=== PATIENT | female | born 1945 | race Caucasian/White ===

== ENCOUNTER 2017-01-12 11:56 | Inpatient (IN) | payer MEDICARE, OTHER ==
[2017-01-12] MEDS ORDERED: Haloperidol Lactate 5 MG/ML VIAL ONE (12:46)
[2017-01-12] MEDS ORDERED: Lorazepam 2 MG/ML VIAL ONE ×2 (13:57→15:16)
--- NOTE | 2017-01-12 15:46 | CT ---
NONCONTRAST CT ABDOMEN AND PELVIS: Date: 01-12-17 History: Nausea, vomiting, and diarrhea. Comparison: None available. FINDINGS: Partial visualization of cardiac pacemaking leads. There is bibasilar atelectasis. Mild vascular calcifications are seen in the abdominal aorta and involving the iliac arteries. There is artifact through the abdomen related to patient's close proximity to the gantry. This does l imit adequate evaluation. Post cholecystectomy changes are seen. The liver, spleen, pancreas, bilateral adrenal glands, and kidneys demonstrate a grossly normal nonen hanced CT appearance. No renal or ureteral calculi are seen bilaterally. The urinary bladder is distended and normal in appearance. Uterus appears surgically absent. The appendix is visualized and normal in caliber. Degenerative changes are seen in the spine. There is left convex curvature of the lumbar spine. IMPRESSION: 1. Distention of the urinary bladder. There is no hydronephrosis or hydroureter, and no renal or uret eral calculi are seen. 2. No evidence of appendicitis. 3. Cholecystectomy. 4. Hysterectomy. 5. Vascular calcifications. POS: [facility]
[2017-01-12] MEDS ORDERED: Lidocaine 1% w/Epinephrine 1:200K 30 ML VIAL ONE (15:51)
[2017-01-12] MEDS ORDERED: Lidocaine 1% PF 5 ML VIAL ONE (15:58)
[2017-01-12 16:41] LABS: Hematocrit 34.8 % (36.0-47.0); Mean Platelet Volume 8.7 fL (7.4-10.4); Red Blood Cell (RBC) Count 3.62 mill/uL (4.20-5.40)
[2017-01-12 16:42] LABS: Oxyhemoglobin 93.4 % (94.0-97.0); Sodium 138 mmol/L (135-148)
[2017-01-12 16:43] LABS: Mode RA; Vent NO
[2017-01-12 16:49] LABS: PTT 28.7 SEC (22.9-36.1); Prothrombin Time 14.5 SEC (12.0-14.7)
[2017-01-12 16:55] LABS: Lactic Acid - Sepsis 1.1 mmol/L (0.5-2.2)
[2017-01-12 17:00] LABS: Band 5 % (5-11); Neutrophil 87 % (42-75)
[2017-01-12 17:02] LABS: ALT (SGPT) 30 U/L (8-55); AST (SGOT) 37 U/L (5-34); Alkaline Phosphatase 259 U/L (40-150); Anion Gap 13 mmol/L (10-20); BUN (Urea Nitrogen) 56 mg/dL (9.8-20.1); Bilirubin, Total 0.5 mg/dL (0.2-1.2); CK (CPK) 716 U/L (29-168); Calc. Creatinine Clearance 0 mL/min (70-130); Calcium 9.6 mg/dL (7.8-10.44); Carbon Dioxide 21 mmol/L (23-31); Chloride 108 mmol/L (98-107); Estimated GFR-MDRD 19; Globulin 2.7 g/dL (2.4-3.5); Lipase 25 U/L (8-78); Magnesium 2.1 mg/dL (1.6-2.6); Protein, Total 6.6 g/dL (6.0-8.3)
[2017-01-12 17:03] LABS: Troponin I 0.018 ng/mL (< 0.028)
--- NOTE | 2017-01-12 17:20 | RAD ---
CHEST ONE VIEW: History: Altered mental status. Dyspnea. FINDINGS: No comparison. Cardiac silhouette is magnified by projection. Pulmonary vasculature is upper limits o f normal. Mediastinum is midline with a dual-lead left subclavian cardiac electronic device. No lobar consolidation or pneumothorax evident. rotary driller leads overlie the chest. IMPRESSION: No active cardiopulmonary abnormalities are demonstrated. POS: [facility]
[2017-01-12] MEDS ORDERED: hydrALAZINE 20 MG/ML VIAL SLOW IVP PRN (17:38)
[2017-01-12] MEDS ORDERED: Haloperidol Lactate 5 MG/ML VIAL IM PRN (17:38)
[2017-01-12] MEDS ORDERED: Bisacodyl 10 MG SUPP PR PRN (17:38)
[2017-01-12] MEDS ORDERED: Acetaminophen 325 MG TAB PO PRN (17:38)
[2017-01-12] MEDS ORDERED: Nitroglycerin 0.4 MG TAB (25 Tab Bottle) PO PRN (17:38)
[2017-01-12] MEDS ORDERED: Senokot 8.6 MG TAB PO PRN (17:38)
[2017-01-12] MEDS ORDERED: Ondansetron HCl/PF 4 MG/2 ML Vial IVP PRN (17:38)
[2017-01-12] MEDS ORDERED: Meropenem 1 GM in Sodium Chloride 0.9% 100 ML IVPB SCH (17:38)
[2017-01-12] MEDS ORDERED: Dextrose 5% in Water 1,000 ML IV PRN (17:38)
[2017-01-12] MEDS ORDERED: Insulin Regular 300 UNITS/3 ML VIAL SC PRN ×2 (17:38)
[2017-01-12] MEDS ORDERED: Ondansetron ODT 4 MG TAB PO PRN (17:38)
[2017-01-12] MEDS ORDERED: Dextrose 50% Abboject 50 ML SYRINGE SLOW IVP PRN (17:38)
--- NOTE | 2017-01-12 17:59 | HP ---
DATE OF ADMISSION: 01/12/2017 PRIMARY CARE PHYSICIAN: Dr. Matthew Alvarado. CHIEF COMPLAINT: Altered mentation. CODE STATUS: FULL CODE. SURROGATE DECISION-MAKER: To be verified with the family. CHIEF COMPLAINT: Altered mentation. The patient is a transfer from [place]. HISTORY OF PRESENT ILLNESS: The patient is a 71-year-old female with hypertension, diabetes mellitus type 2, and bipolar disorder what was brought in to [place] [facility] with altered mentation. The patient was transferred to this facility for hospital admission. At this time, there is no fam paulino at the bedside. History obtained from the review of [facility] records. There is no family in [facility] waiting area as well. According to records from [place], the patient has several days of altered mentation along with vom iting and diarrhea. She has been increasingly agitated. Her psych medications were recently changed . Per ER record, Paxil was recently discontinued. There was no fever, chills, fall or injury report ed. In the emergency room at [facility], her CBC showed WBC 23.4 with hemoglobin 12.5, platelet count 238 with 86% neutrophils. Urinalysis was negative for wbc, bacteria. Creatinine was 3.0 with BUN 64.6. Her chest x-ray showed cardiomegaly. CT scan of the brain showed atrophy with chronic microvascular changes. The case was discussed by the ER physician at [facility] with her primary care physician, Emily Alvarado, who recommended transfer to this facility for possible MRI. Please note, the patient has a pacemaker for sick sinus syndrome. Her initial vital signs at the emergency room showed temperature 37, pulse rate of 65 with blood pressure 109/76 with O2 saturation of 93% on room air. Repeat labs are pending at this time. It is unclear whether blood cultures were drawn over there. She received ceftriaxone at [place]. PAST MEDICAL HISTORY: Per ER record; 1. Diabetes mellitus, type 2. 2. Hyperlipidemia. 3. Hypertension. 4. Hypothyroidism. 5. Anxiety, depression, bipolar disorder. 6. Sick sinus syndrome, status post pacemaker. PAST SURGICAL HISTORY: 1. Cholecystectomy. 2. Hysterectomy. 3. Knee replacement. 4. Colonoscopy. ALLERGIES: The patient is allergic ABILIFY, CODEINE, SEROQUEL, and ZOLOFT. CURRENT HOME MEDICATIONS: Unavailable at this time. To be verified with the family. SOCIAL HISTORY: Per ER record, the patient drinks alcohol occasionally. No smoking or drug use. Nicki ortiz currently lives at home with her family. She has a history of drinking 2-3 beers on a daily basis in the past. FAMILY HISTORY: Positive for coronary artery disease and hypertension in several family members. REVIEW OF SYSTEMS: Cannot be obtained from the patient due to current cognitive status. PHYSICAL EXAMINATION: VITAL SIGNS: As discussed above. Her last temperature was 98.6 with blood pressure 102/94. GENERAL: A 71-year-old female who was agitated. She is unresponsive to verbal commands. She is matthew ke and screaming. No family at the bedside. HEENT: Head atraumatic, normocephalic. Sclerae are anicteric. Dry mucous membranes. No oral lesio n. Pupils were 2-3 mm bilaterally with sluggish response to light. Doll's eye movements were negati ve. NECK: Supple. There is no neck rigidity, no JVD. LUNGS: Showed scattered rales at bases. No rhonchi or wheezing. Lungs are symmetrical. HEART: S1, S2 present, regular, 2/6 systolic murmur over the mitral area. No heaves or pulsation. No gallops. ABDOMEN: Soft. Bowel sounds present. No guarding or rigidity noted. EXTREMITIES: Trace edema in bilateral lower extremities. No calf tenderness appreciated. NEUROLOGIC AND PSYCHIATRIC: Could not be assessed due to current cognitive status. There was no mus luther rigidity. The tone was probably normal. Again, it is difficult to assess due to patient being a gitated. SKIN: Skin is dry. LYMPH NODES: No palpable lymph nodes in the neck. PERIPHERAL VASCULAR: Radial pulses palpable bilaterally. MUSCULOSKELETAL: No joint swelling or tenderness. LABORATORY FINDINGS: As discussed above. Telemetry monitoring by my review showed sinus rhythm. CT scan of the abdomen and pelvis noncontrast by my review showed distention of the urinary bladder wit hout any hydronephrosis or hydroureter. IMPRESSION: 1. Altered mentation/toxic metabolic encephalopathy of unclear etiology. 2. Leukocytosis, suspected sepsis of unclear etiology. 3. Diabetes mellitus, type 2. 4. Hypertension. 5. Sick sinus syndrome, status post pacemaker. 6. Anxiety, depression, bipolar disorder with recent medication changes. 7. Hypothyroidism. 8. Acute kidney injury. Her baseline creatinine is unavailable. In [facility], creatinine was 1.0 in 2000. No other labs available. 9. Nausea, vomiting, diarrhea, suspected infectious. Rule out Clostridium difficile. 10. Dehydration. 11. History of alcohol abuse. 12. Degenerative joint disease. PLAN: 1. The patient will be monitored in the intermediate care unit. Stat labs including blood gases, CK , lactic acid and blood cultures will be obtained. She received Haldol in the emergency room for jared tation. We will empirically start antibiotics. LP was attempted; however, was not performed due to patient being agitated. Critical Care will be consulted. Exact etiology for altered mentation is un clear. We will discuss with the family. Medication changes is also a possibility. 2. DVT prophylaxis with subcutaneous heparin. IV hydration. 3. We will discuss the plan of care with the family when they arrive. 4. The patient will require 3-4 days for stabilization.
[2017-01-12] MEDS: Meropenem 1 GM in Sodium Chloride 0.9% 100 ML IVPB SCH ×2 (18:01→19:10)
[2017-01-12 19:04] LABS: Troponin I 0.022 ng/mL (< 0.028)
[2017-01-12] MEDS: Dextrose 5 %-0.45 % NaCl 1,000 ML IV SCH (19:09)
[2017-01-12] MEDS: Docusate 100 MG CAP PO SCH (20:33)
[2017-01-12] MEDS: Heparin 5,000 UNITS/ML VIAL SC SCH (20:35)
[2017-01-12] MEDS ORDERED: FLU VACC TS2017-18 (>65YR) 0.5 ML SYRINGE IM ONE (21:00)
[2017-01-12 22:33] LABS: Troponin I 0.029 ng/mL (< 0.028)
[2017-01-12] MEDS ORDERED: Haloperidol Lactate 5 MG/ML VIAL IM SCH (23:45)
[2017-01-13] MEDS ORDERED: Morphine PF 1 MG/ML SYR IVP PRN (02:46)
--- NOTE | 2017-01-13 02:48 | PDOC.EVN ---
Event Note - Event Note Event Note: Pt seen for episodes of agitation. Currently asleep, S1, S2, regular, Lungs clear. Discussed with pt's daughter and RN. Pt appears to have been in pain when she was moaning and agitated. Will try morphine PRN. Discussed with daughter re; risk of worsening confusion from morphine as well as possible allergy (pt is allergic to codeine). Pt's daughter wishes to trial morphine. Cannot try NSAIDs due to renal failure.
[2017-01-13 05:12] LABS: #Eosinphils 0.1 thou/uL (0.0-0.7); #Lymphocytes 1.4 thou/uL (1.20-3.40); #Neutrophils 17.5 thou/uL (1.40-6.50); %Basophils 0.2 % (0.0-1.0); %Eosinophils 0.4 % (0.0-10.0); %Lymphocytes 6.5 % (21.0-51.0); %Monocytes 9.3 % (0.0-10.0); Hematocrit 33.6 % (36.0-47.0); White Blood Cell (WBC) Count 20.9 thou/uL (4.8-10.8)
[2017-01-13] MEDS: Dextrose 5 %-0.45 % NaCl 1,000 ML IV SCH (05:57)
[2017-01-13 06:04] LABS: ALT (SGPT) 30 U/L (8-55); AST (SGOT) 34 U/L (5-34); Alkaline Phosphatase 260 U/L (40-150); Anion Gap 14 mmol/L (10-20); BUN (Urea Nitrogen) 50 mg/dL (9.8-20.1); Bilirubin, Total 0.5 mg/dL (0.2-1.2); CK (CPK) 831 U/L (29-168); Calc. Creatinine Clearance 35 mL/min (70-130); Calcium 9.2 mg/dL (7.8-10.44); Carbon Dioxide 19 mmol/L (23-31); Chloride 110 mmol/L (98-107); Cholesterol 70 mg/dl (< 200 Desired); Estimated GFR-MDRD 21; Globulin 2.6 g/dL (2.4-3.5); LDL Cholesterol, Calculated 18 mg/dL; Protein, Total 6.4 g/dL (6.0-8.3)
[2017-01-13] MEDS: Meropenem 500 MG, Admixture Fee 1 EACH in Sterile Water 10 ML SLOW IVP SCH ×2 (09:13→20:48)
[2017-01-13] MEDS: Famotidine/PF 20 mg/2ml Vial SLOW IVP SCH (09:13)
[2017-01-13] MEDS: Aspirin 300 MG Suppository PR SCH (09:13)
[2017-01-13] MEDS: Heparin 5,000 UNITS/ML VIAL SC SCH ×3 (09:13→20:51)
[2017-01-13] MEDS ORDERED: Cyanocobalamin 1000 MCG/ML VIAL IM SCH (09:30)
[2017-01-13] MEDS: Docusate 100 MG CAP PO SCH ×2 (10:10→20:51)
--- NOTE | 2017-01-13 12:16 | CON ---
DATE OF CONSULTATION: 01/13/2017 REASON FOR CONSULTATION: Critical care management. HISTORY OF PRESENT ILLNESS: This is a 71-year-old female who presented to the hospital yesterday wit h altered mental status. She could not give a history. Apparently, she had presented to the [facility] several days of altered mental status along with vomiting and diarrhea. She had become a gitated. PAST MEDICAL HISTORY: 1. Diabetes mellitus type 2. 2. Bipolar disorder. 3. Hypothyroidism. 4. Hypertension. 5. Hyperlipidemia. 6. Sick sinus syndrome. PAST SURGICAL HISTORY: 1. Pacemaker placement. 2. Cholecystectomy. 3. Hysterectomy. 4. Knee surgery. 5. Colonoscopy. ALLERGIES: ABILIFY, CODEINE, SEROQUEL, ZOLOFT. MEDICATIONS PRIOR TO ADMISSION: She had been taking lithium, lorazepam, Plavix, Synthroid, Avapro, V alium, hydrochlorothiazide, vitamin D2, Glucophage, lithium carbonate, furosemide, Coreg, Farxiga, Li pitor. SOCIAL HISTORY: The patient drinks alcohol occasionally. Does not smoke. FAMILY MEDICAL HISTORY: Remarkable for coronary artery disease. REVIEW OF SYSTEMS: Cannot be obtained secondary to patient's altered mental status. PHYSICAL EXAMINATION: VITAL SIGNS: Temperature 98.5, pulse 60, respirations 16, O2 sat 97%, blood pressure 174/49. HEENT: Unremarkable. NECK: No JVD. LUNGS: Clear to auscultation. CARDIAC: S1, S2 regular. ABDOMEN: Soft. EXTREMITIES: No edema. NEUROLOGIC: She moans. She does not follow commands. LABORATORY DATA: White blood cell count 20.9, hemoglobin 10, hematocrit 33.6, platelet count 201. P H 7.31, pCO2 37, pO2 77. Sodium 139, potassium 3.8, chloride 110, CO2 19, BUN 50, creatinine 2.3, gl ucose 144. CPK 831, alkaline phosphatase 260. Cortisol 18.9. Tox screen showed a lithium level of 2.9. ASSESSMENT: 1. 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 2. Renal insufficiency, likely secondary to her issues with lithium. 3. History of bradycardia requiring pacemaker placement. RECOMMENDATIONS: 1. Continue hydration as you are doing. 2. Consider Nephrology consultation and possible hemodialysis.
[2017-01-13 16:16] LABS: Vancomycin, Random 8.9 ug/mL (See Comment)
[2017-01-13] MEDS: Sodium Chloride 0.9% 1,000 ML IV SCH ×2 (17:50→20:50)
--- NOTE | 2017-01-13 17:53 | CON ---
DATE OF CONSULTATION: 01/13/2017 REASON FOR CONSULTATION: Altered mental status. HISTORY OF PRESENT ILLNESS: A 71-year-old patient first admission to this hospital since 2000. Pattie cárdenas has a longstanding history of bipolar disorder, previously managed with Zyprexa and currently chaz arently has been started on lithium therapy. She also takes Farxiga, metformin, Lasix, atorvastatin, and Plavix. Patient developed altered mental status since 12/28/2016. This has been discussed with her primary care physician. Initially the PCP felt that Paxil might be the cause and he started the patient on Trintellix, which is another SSRI related medication. Subsequently, she developed vomiti ng and diarrhea and was brought to the emergency room on 01/06/2017 and on 01/09/2017, family called PCP and he them to stop Trintellix. She continued to feel unwell with generalized fatigue and unable to ambulate. Continued with vomiting and diarrhea, and then she was admitted to the emergency room. Initial findings included blood pressure 102/94, pulse 76, respirations 18, temperature 98.6, and O 2 sat 100% on room air. The patient was moving extremities, but was obtunded and did not respond to questions. Did not follow commands. Initial impression was altered mental status with metabolic enc ephalopathy of unclear etiology, leukocytosis, and acute kidney injury. Now, lithium level has retur nikita and was in the toxic range of 2.9. Patient has been prepared for hemodialysis in an emergency [facility]. Currently, Ms. Pulido is obtunded. She is moaning and groaning, but does not establish int eraction with the examiner, does not follow commands and does not open her eyes spontaneously. No re ported chest pain or fever in the home setting. No genitourinary symptoms. PAST MEDICAL HISTORY: Type 2 diabetes, bipolar disorder, hyperlipidemia, hypertension, hypothyroidis m, sick sinus syndrome with pacemaker. PAST SURGICAL HISTORY: Cholecystectomy, hysterectomy, knee replacement, colonoscopy. ALLERGIES: ABILIFY, CODEINE, Seroquel, and ZOLOFT. MEDICATIONS: As above. SOCIAL HISTORY: Never a smoker. Used to drink beer on a daily basis. FAMILY HISTORY: Coronary artery disease. PHYSICAL EXAMINATION: VITAL SIGNS: T-max 99.3, now 98.6, blood pressure 160/50, pulse 80, respirations 16, O2 sat 94%-98%. SKIN: With peripheral IV access and she has an indwelling Eubanks catheter. Urinary output is 1900 an d input 1300. SKIN: Exam with no other lesions, no lymphadenopathy. HEENT: Ocular movements are conjugate, but she does not follow commands. Sclerae white. Pupils are 2 mm and reactive. Oral cavity is somewhat dry. Still quite a few teeth in place with quite a bit of decay and gum disease. NECK: Supple. No jugular venous distention. LUNGS: With symmetric air entry. HEART: S1, S2, regular rate. No S3 or S4. There is soft aortic murmur. Pacer pocket site without inflammatory changes. ABDOMEN: Soft. Not distended or tender. No ascites. No bladder distention. EXTREMITIES: No joint inflammatory activity. Pulses are 1+ in dorsalis pedis. NEUROLOGIC: Patient moves all extremities, but does not follow commands. She has some element of ps ychomotor agitation. LABORATORY DATA AND IMAGING: Sodium 139, creatinine 2.27, which is down from admission when it was 2 .49. No baseline creatinine available in the record except for the one from 2000 when it was 1.0. A ST 34, ALT 30, alkaline phosphatase 260, CK 831. LACTIC acid was 1.1. Anion gap 14, albumin 3.8, li thium was 2.9. Two different samples submitted this morning. Abdomen and pelvis CT with distention of the urinary bladder. No evidence of inflammatory changes noted, some vascular calcifications. Ch est x-ray with no active pulmonary abnormalities. Echocardiogram LVEF of 55%, mild to moderate kodi l regurg, and a pacer visualized. ASSESSMENT: 1. Bipolar disorder. 2. Diabetes type 2. 3. Renal insufficiency associated with volume depletion. 4. [place] toxicity, likely chronic. 5. Neutrophilia. 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 This superimposed on renal insufficiency which is probably what precipitated the lithium toxicity. The patient will be dialyzed. The neutrophilia is probably secondary to the lithium toxicity as well. There is no evidence of an acute inflammatory process not iceable at this point in time.
--- NOTE | 2017-01-13 22:35 | OP ---
DATE OF OPERATION: 01/13/2017 PREOPERATIVE DIAGNOSES: [place] toxicity, morbid obesity, agitation. POSTOPERATIVE DIAGNOSES: [place] toxicity, morbid obesity, agitation. PROCEDURE: Right femoral vein Trialysis catheter. SURGEON: Natalio Lay M.D. ANESTHESIA: 1% Xylocaine. DESCRIPTION OF PROCEDURE: At the patient's bedside in the intermediate care area with three nurses kitty mejia assisted me to restrain the patient due to her lithium toxicity. Her right groin was prepar ed with ChloraPrep, draped in routine fashion. A 1% Xylocaine infiltrated in skin and subcutaneous t issue, and trocar catheter with great difficulty accessed the femoral vein. This was difficult due t o the patient's lack of cooperation of movement. After multiple attempts, I was able to thread a J-w luis fernando, removed the trocar catheter, used the Seldinger technique to place placing a smaller and medium sized dilator over the J-wire into the femoral vein and placed the distal port of Trialysis catheter over the J-wire into the femoral vein and securing the catheter with 3-0 nylon suture, removing the J -wire, securing the catheter with Op-Site and secured it to the skin with 3-0 silk. Each port aspira josy blood and flushed with saline solution and connected to the dialysis catheter machine. Patient t olerated the procedure well.
--- NOTE | 2017-01-13 23:34 | PRG ---
DATE OF SERVICE: 01/13/2017 SUBJECTIVE: The patient is seen and examined at the bedside. She received a lot of medications to c scooter her down. She is still agitated and screaming. She does not let me even examine her in a normal way. OBJECTIVE: VITAL SIGNS: Blood pressure is 174/49, pulse is 60, temperature is 98.5, respirations 18, O2 saturat ion is 98. LUNGS: Difficult to assess because she is in constant movement. HEART: S1, S2 normal. ABDOMEN: Obese. NEUROLOGIC: As mentioned above. Difficult to assess. She is not cooperating. She is able to move her all 4 extremities, but that is all we can assess at this point. LABORATORY DATA: White count was up to 20.9, hemoglobin 10.8, hematocrit 33.6, platelet count is 201 ,000. Sodium of 139, potassium 3.3, chloride 110, CO2 of 19, BUN is 50, creatinine 2.27, glycemic is ranging from 110-137. Alkaline phosphatase 260, 831. The rest of chemistry within normal moya its. Cortisol 18.9. [place] level was checked, 2.9-5, it is a critical value. IMPRESSION: 1. [place] toxicity. 2. Leukocytosis, unclear etiology, most likely related to #1, but we are not ready to rule out infec tion. 3. Diabetes mellitus, type 2. 4. Hypertension. 5. Sick sinus syndrome, status post pacemaker. 6. Hypothyroidism. 7. Acute kidney injury. PLAN: Stop D5 water. Start normal saline 200 bolus then 150 per hour. Obtain a consultation with n ephrologist and do the dialysis. Start her on Vitamin B12 since her level is low at 250. Continue A ccu-Cheks. Continue broad coverage antibiotics.
[2017-01-14] MEDS: Sodium Chloride 0.9% 1,000 ML IV SCH ×3 (03:49→11:42)
[2017-01-14 06:03] LABS: ALT (SGPT) 35 U/L (8-55); AST (SGOT) 39 U/L (5-34); Alkaline Phosphatase 269 U/L (40-150); Anion Gap 13 mmol/L (10-20); BUN (Urea Nitrogen) 16 mg/dL (9.8-20.1); Bilirubin, Total 0.8 mg/dL (0.2-1.2); Calc. Creatinine Clearance 56 mL/min (70-130); Calcium 8.5 mg/dL (7.8-10.44); Carbon Dioxide 26 mmol/L (23-31); Chloride 107 mmol/L (98-107); Estimated GFR-MDRD 36; Globulin 2.6 g/dL (2.4-3.5); Protein, Total 6.3 g/dL (6.0-8.3)
[2017-01-14 06:08] LABS: Band 11 % (5-11); Hematocrit 30.7 % (36.0-47.0); Mean Platelet Volume 8.8 fL (7.4-10.4); Neutrophil 83 % (42-75); Red Blood Cell (RBC) Count 3.19 mill/uL (4.20-5.40); White Blood Cell (WBC) Count 29.2 thou/uL (4.8-10.8)
[2017-01-14 08:21] LABS: Oxyhemoglobin 95.3 % (94.0-97.0); Sodium 144 mmol/L (135-148)
[2017-01-14 08:23] LABS: Mode 02 3L/M NC; Modified Allen's Test NOT DONE; Vent NO
[2017-01-14 08:54] LABS: Bilirubin Moderate (Negative); Blood, Urine Large (Negative); Glucose, Urine (Dipstick) 500 mg/dL (Negative); Ketone, Urine 15 mg/dL (Negative); Nitrite Negative (Negative); Protein, Urine (Dipstick) 100 mg/dL (Neg-Trace)
[2017-01-14 08:56] LABS: RBC/HPF GREATER THAN 50-TNTC HPF (0-3); WBC/HPF 21-50 HPF (0-3)
[2017-01-14 09:07] LABS: Bacteria/HPF Rare-Few HPF (None Seen); Hyaline Casts/LPF 0-3 HYALINE CAST LPF (0-3 Hyaline)
[2017-01-14 09:08] LABS: Renal Epithelial 0-3 HPF (0-3); Transitional Epithelial 0-3 HPF (0-3)
[2017-01-14] MEDS: Docusate 100 MG CAP PO SCH ×2 (09:09→19:48)
[2017-01-14] MEDS: Heparin 5,000 UNITS/ML VIAL SC SCH ×3 (09:09→21:00)
[2017-01-14] MEDS: Aspirin 300 MG Suppository PR SCH (09:10)
[2017-01-14] MEDS: Meropenem 500 MG, Admixture Fee 1 EACH in Sterile Water 10 ML SLOW IVP SCH ×2 (09:10→21:01)
[2017-01-14] MEDS: Famotidine/PF 20 mg/2ml Vial SLOW IVP SCH (09:10)
--- NOTE | 2017-01-14 09:28 | RAD ---
PORTABLE UPRIGHT FRONTAL CHEST RADIOGRAPH: DATE: 01/14/17. COMPARISON: 01/12/17. HISTORY: Tachypnea. FINDINGS: Shallow inspiration limits detailed assessment. Mild linear density in the perihilar regions and bennett g bases may signify volume loss. Stable transvenous pacing device. No pneumothorax seen. IMPRESSION: Limited study secondary to shallow inspiration. No significant interval change. POS: [facility]
--- NOTE | 2017-01-14 10:48 | PRG ---
DATE OF SERVICE: 01/14/2017 SUBJECTIVE: The patient was seen and examined at the bedside. She is in ICU B8. She was dialyzed y esterday after she had catheter placed by general surgeon in her groin. She seems to be doing better , but she still is not able to communicate with us. She does not follow commands. OBJECTIVE: VITAL SIGNS: Blood pressure is 159/65: Temperature is 97.8, pulse is 65, respiratory rate is 20, O2 saturation is 97% on 2 L by nasal cannula. GENERAL: Today I am able to listen to her chest and check her abdomen. She is not fighting me like yesterday. HEENT: Her pupils seem to be in mid position, responding to light properly. Conjunctivae pinkish. LUNGS: Clear, only the bases slightly diminished with maybe few crackles bilaterally. No wheezing. HEART: S1, S2 normal. No S3, no S4. She has a type of breathing which suggestive of some expirator y difficulty, but she does not have any typical sounds like wheezing. ABDOMEN: Soft, nontender, obese, nondistended. Bowel sounds are present. EXTREMITIES: No clubbing, cyanosis or edema. NEUROLOGIC: She is not able to communicate with me verbally. She is altered. She moves all 4 extre mities. LABORATORY DATA: White count is 29.2, hemoglobin 9.6, hematocrit 30.7, platelet count is 224, neutro phils 83%. Normal electrolytes, BUN of 16, creatinine 1.43, glucose 163. Glycemia is ranging from 1 07-166. AST 39, alkaline phosphatase 269 and the rest of chemistry within normal limits. [place] was down to 1.1 after dialysis yesterday and now is 1.49. IMPRESSION: 1. [place] toxicity, status post normal saline infusion plus hemodialysis per Dr. Schafer. The level de creased significantly, but it is up a little bid this morning. We will continue intravenous fluids w ith normal saline at 100 mL per hour. 2. Leukocytosis, which is worse today. The patient was seen by Dr. Rosales, Infectious Disease, yeste rday and he stated that there was not any evidence of inflammatory process. We will keep the patient on meropenem. 3. Hypertension. 4. Sick sinus syndrome, status post pacemaker. 5. Hypothyroidism. 6. Respiratory difficulties. We will obtain chest x-ray and ABGs, although she is saturating 97% on pulse oximeter. 7. Vitamin B12 deficiency. She received 1 dose of vitamin B12 1000 mcg. Would continue Accu-Cheks. 8. Normocytic anemia, slightly down hemoglobin from 11.3-9.6, but the patient received significant a mount of intravenous fluids which could be related to that. Kidney function is improving with intrav enous fluids and will we continue heparin for deep vein thrombosis prophylaxis.
--- NOTE | 2017-01-14 11:14 | PRG ---
DATE OF SERVICE: 01/14/2017 SUBJECTIVE: The patient is moaning. She opens her eyes. She moves her extremities. Her daughter i s in the room. The patient is not oriented and cannot verbalize at this time. PHYSICAL EXAMINATION: VITAL SIGNS: Temperature is 97.8, pulse 65, respirations 20, O2 saturation 97% on 3 liters, blood pr essure 159/65. HEENT: Pupils are reactive. Sclerae anicteric. Oropharynx clear. NECK: No JVD. CHEST: Clear anteriorly. CARDIOVASCULAR: S1 and S2 regular. ABDOMEN: Soft, nontender. EXTREMITIES: No edema. LABORATORY DATA: White blood cell count 29.2, hemoglobin 9.6, hematocrit 30.7, platelet count 224. A pH 7.39, pCO2 43, pO2 79 on 3 liters. Sodium 142, potassium 3.9, chloride 107, CO2 26, BUN 16, cre atinine 1.4, glucose 163. [place] level is down to 1.49. ASSESSMENT: 1. [place] toxicity with severe mental status changes. 2. Encephalopathy. 3. Elevated white blood cell count. PLAN: 1. May need repeat dialysis -- waiting on next lithium level. 2. She is continuing empiric antibiotics. 3. I would go ahead and slow down her IV fluids.
--- NOTE | 2017-01-14 14:33 | PRG ---
DATE OF SERVICE: 01/14/2017 SUBJECTIVE: This 71-year-old female being seen for acute kidney injury. The patient is not responsi ve to any simple commands. PHYSICAL EXAMINATION: GENERAL: The patient is resting. VITAL SIGNS: Afebrile, pulse 63, blood pressure 137/66. GENERAL APPEARANCE AND MENTAL STATUS: Fair. HEAD/NECK: Normocephalic. Atraumatic. EYES: EOMI. No deformity. EARS: Clear. No ulcers. NOSE: Intact. No lesions. MOUTH: Clear. No discharge. THROAT: Clear. No exudate. LUNGS: Clear. No crackles. CARDIAC: S1, S2. No rub. ABDOMEN: Benign. BS+ GENITALIA/RECTUM: Eubanks absent. BACK/EXTREMITIES: Edema 0+ Ulcer- NEUROLOGICAL: Alert and motor intact. SKIN: Rash- Bruise- LYMPHATICS: Edema- Ulcer- LABORATORY: Hemoglobin 9.6, creatinine 1.4. ASSESSMENT AND PLAN: Acute kidney injury, stable. [place] toxicity. [place] level is stable at 1.5 , status post dialysis. No indication for urgent dialysis. We will recheck labs in 6 hours.
--- NOTE | 2017-01-14 15:43 | CT ---
NONCONTRAST CT HEAD: 01/14/17 HISTORY: Altered mental status. COMPARISON: None available. FINDINGS: There are mild chronic small vessel ischemic changes and cerebral volume loss. There is no evidence o f an acute cortical infarction, hemorrhage, mass effect, or midline shift. Ventricular system is norm al in size, shape and position for the degree of sulcal atrophy. The visualized paranasal sinuses and mastoid air cells are clear. Calvarial structures are intact. IMPRESSION: 1. No acute intracranial abnormalities demonstrated. 2. Mild chronic small vessel ischemic changes and cerebral volume loss. POS: [facility]
[2017-01-14] MEDS ORDERED: Vancomycin HCl 1 GM in Premix Bag 1 BAG IVPB SCH (17:00)
[2017-01-15] MEDS: Sodium Chloride 0.9% 1,000 ML IV SCH ×2 (00:22→09:06)
[2017-01-15] MEDS ORDERED: Lorazepam 2 MG/ML VIAL SLOW IVP SCH (03:30)
[2017-01-15 05:21] LABS: #Eosinphils 0.1 thou/uL (0.0-0.7); #Lymphocytes 1.2 thou/uL (1.20-3.40); #Monocytes 1.2 thou/uL (0.11-0.59); #Neutrophils 19.6 thou/uL (1.40-6.50); %Eosinophils 0.4 % (0.0-10.0); %Lymphocytes 5.2 % (21.0-51.0); %Monocytes 5.4 % (0.0-10.0); Mean Platelet Volume 9.3 fL (7.4-10.4); Red Blood Cell (RBC) Count 2.99 mill/uL (4.20-5.40); White Blood Cell (WBC) Count 22.1 thou/uL (4.8-10.8)
[2017-01-15 05:43] LABS: Anion Gap 12 mmol/L (10-20); BUN (Urea Nitrogen) 23 mg/dL (9.8-20.1); Calc. Creatinine Clearance 54 mL/min (70-130); Carbon Dioxide 26 mmol/L (23-31); Chloride 112 mmol/L (98-107); Estimated GFR-MDRD 33
[2017-01-15] MEDS ORDERED: Haloperidol Lactate 5 MG/ML VIAL IM PRN (08:44)
[2017-01-15] MEDS: Docusate 100 MG CAP PO SCH ×2 (09:06→19:28)
[2017-01-15] MEDS: Dextrose 5% in Water 1,000 ML IV SCH ×2 (09:10→21:56)
[2017-01-15] MEDS: Meropenem 500 MG, Admixture Fee 1 EACH in Sterile Water 10 ML SLOW IVP SCH ×2 (09:10→21:53)
[2017-01-15] MEDS: Famotidine/PF 20 mg/2ml Vial SLOW IVP SCH (09:17)
[2017-01-15] MEDS: Heparin 5,000 UNITS/ML VIAL SC SCH ×3 (09:17→21:54)
[2017-01-15] MEDS: Aspirin 300 MG Suppository PR SCH (09:17)
[2017-01-15 09:46] LABS: Free T3 1.01 pg/mL (1.71-3.71)
--- NOTE | 2017-01-15 13:28 | PRG ---
DATE OF SERVICE: 01/15/2017 SUBJECTIVE: The patient is seen and examined at bedside. She is still in the same state of mind. S he does not know any contact with her. She is moaning and groaning, having eyes open. OBJECTIVE: VITAL SIGNS: Pulse is 64, respiratory rate is 20, O2 saturation is 99% on 2 liters, blood pressure i s 169/70, maximum temperature 99.7. My examination is limited since she is constantly moving and not letting me to do full examination. She does not follow my commands. HEENT: Her oral mucosa is dry. Pupils in midline responding to light properly. Sclerae is nonicter ic. Conjunctivae pinkish. LUNGS: Clear. HEART: S1, S2 normal. She has tachypnea approximately 20-20 times per minute. ABDOMEN: Soft, nondistended. HEART: S1, S2 normal, no S3, no S4. EXTREMITIES: No clubbing, cyanosis or edema. NEUROLOGIC: As mentioned above, she moves her 4 extremities. Does not any contact with her. She is awake, not following any commands, moving a lot and morning a lot. LABORATORY DATA: Showed white count down to 22.1, hemoglobin 9.3, hematocrit 29.0, platelet count is 180,000, neutrophils 19.6. Sodium of 146, potassium 3.7, chloride 112, CO2 of 26, BUN 23, creatinin e 1.53, glucose is ranging from 150s-160s. [place] level is 1.49 this morning and last night it was 1.58. Urine showed 100 of protein, 500 of glucose, 15 od ketones, large amount of blood, rbc's 50 to TNTC, white cells 21-50, 4-6 squamous epithelial cells, rare bacteria, 0-[address] results showed no acute intracranial abnormalities, mild chronic small vessel ischemic changes and c erebral volume loss and images were reviewed by me personally. IMPRESSION: 1. [place] toxicity status post hemodialysis. [place] is down to 1.49 and the patient is still not regaining her consciousness. She is still on normal saline infusion. We will have neurologist to se e her and see whether there is some other cause of her current status. CT of the head was done, whic h did not show any CVA. Also, we will discuss the case with Dr. Schafer who might offer 1 additional se ssion of hemodialysis since she is not recovering completely despite her normal saline treatment. 2. Leukocytosis, improved. It is down to 22,000. She is on meropenem for empiric coverage. Urinal ysis was done yesterday and results are kind of borderline. We will make sure that there is a urine culture done on this specimen. We will continue meropenem. 3. Hypertension. 4. History of sick sinus syndrome and status post pacemaker placement. 5. Hypothyroidism. We will check her TSH, T3, and T4. 6. Respiratory difficulties. Her ABGs and chest x-ray came back normal. She is saturating well on her pulse oximetry. 7. Vitamin B12 deficiency. She received 1 dose of B12. 8. Hypernatremia and hyperchloremia that is iatrogenic secondary to significant amount of normal abiley ine she received. As soon as a decision is made about additional session on hemodialysis, we will ch mae her fluids to D5 water. 9. Normocytic anemia with stable hemoglobin at 9.3, which is slightly lower than what it was yesterd ay. We will continue her on heparin for deep venous thrombosis prophylaxis and Pepcid for peptic ulc er disease prophylaxis and we will continue her meropenem. We will continue normal saline for now.
--- NOTE | 2017-01-15 13:36 | PRG ---
DATE OF SERVICE: 01/15/2017 SUBJECTIVE: The patient remained encephalopathic with moving about in the bed and moaning. OBJECTIVE: VITAL SIGNS: Temperature 99.6, pulse 54, respirations 20, O2 sat 98% on 2 liters and blood pressure 159/70. HEENT: Unremarkable. NECK: No JVD. CHEST: Clear to auscultation without wheezing. CARDIAC: S1 and S2 regular. ABDOMEN: Soft. EXTREMITIES: No edema. LABORATORY DATA: White blood cell count 22.1, hematocrit 29 and platelet count 180. Sodium 146, pot assium 3.0, chloride 112, CO2 of 26, BUN 23, creatinine 1.5 and glucose 160. ASSESSMENT: 1. Chronic lithium toxicity. 2. Encephalopathy. RECOMMENDATIONS: 1. Increase the amount of water in her IV fluids, given the developing hypernatremia. 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 2. Thyroid studies are being checked. 3. Cardiorenal studies are being checked. 4. I discussed with the daughter at the bedside.
--- NOTE | 2017-01-15 14:03 | PRG ---
DATE OF SERVICE: 01/15/2017 SUBJECTIVE: This is a 71-year-old female being seen for acute kidney injury. The patient remains wi th altered mental status. PHYSICAL EXAMINATION: GENERAL: Patient is agitated. VITAL SIGNS: Her temperature 99.5, pulse 68, breathing at 16, blood pressure 161/74. OBJECTIVE: See above. Awake, alert, in no acute distress. HEAD/NECK: Normocephalic. Atraumatic. EYES: EOMI. No deformity. EARS: Clear. No ulcers. NOSE: Intact. No lesions. MOUTH: Clear. No discharge. THROAT: Clear. No exudate. LUNGS: Clear. No crackles. CARDIAC: S1, S2. No rub. ABDOMEN: Benign. BS+. GENITALIA/RECTUM: [place] absent. BACK/EXTREMITIES: Edema 0+ Ulcer- NEUROLOGICAL: Alert and motor intact. SKIN: Rash- Bruise- LYMPHATICS: Edema- Ulcer- LABORATORY DATA: Hemoglobin 9.3. [place] levels 1.49. ASSESSMENT AND RECOMMENDATIONS: 1. Stage 3 chronic kidney disease, stable. 2. Acute kidney injury, improved. 3. Hyponatremia, change IV fluids to D5 water. 4. Elevated lithium level. We will plan dialysis to see if the lithium level can be lowered further . 5. Altered mental status. Management per Neurology.
--- NOTE | 2017-01-15 14:07 | CON ---
DATE OF CONSULTATION: 01/15/2017 CONSULTING PHYSICIAN: Hospitalist service. IMPRESSION: Encephalopathy, unknown etiology. PLAN: 1. Check a T4, cortisol, and ammonia level. 2. Haldol 5-10 mg q.8 hours as needed for agitation. 3. Check EEG tomorrow if she is not cleared. HISTORY OF PRESENT ILLNESS: Ms. Pulido is a 71-year-old white female who has known psychiatric h istory. She came in encephalopathic. Her CT was unremarkable. She had a low grade temperature and elevated white count, has been started on empiric antibiotics. Her urinalysis suggested possible inf ection. Her lithium level was toxic and she required dialysis. Her last level was 1.5. She has not had any seizure activity. PAST MEDICAL HISTORY: Otherwise, negative. FAMILY HISTORY: Noncontributory. ALLERGIES: As per chart. MEDICATIONS: Reviewed. PHYSICAL EXAMINATION: VITAL SIGNS: Blood pressure 160/74, pulse 64, respirations 20, saturations 100%. HEENT: Pupils equal and reactive. Conjunctivae clear. Oropharynx is clear. NECK: Supple. EXTREMITIES: No cyanosis or rash noted on the skin. NEUROLOGIC: She is awake appearing, but moaning and not coherent in any form of fashion. Face appea red to be symmetric. Her tone appeared to be symmetric. Her movements were symmetric. She responde d to sensation equally. SUMMARY: This is an elderly lady with persistent encephalopathy following lithium toxicity. If poss ible, may be a delayed clearing of the [place] component despite dialysis other metabolic causes should b e ruled out. I agree with the empiric antibiotics for possible urosepsis and we will follow up and s ee how she responds.
[2017-01-16] MEDS: Lorazepam 2 MG/ML VIAL SLOW IVP PRN (04:20)
[2017-01-16 04:58] LABS: Anion Gap 9 mmol/L (10-20); BUN (Urea Nitrogen) 10 mg/dL (9.8-20.1); Calc. Creatinine Clearance 83 mL/min (70-130); Carbon Dioxide 30 mmol/L (23-31); Chloride 106 mmol/L (98-107); Estimated GFR-MDRD 55
[2017-01-16] MEDS: Docusate 100 MG CAP PO SCH ×2 (08:46→20:23)
[2017-01-16] MEDS: Heparin 5,000 UNITS/ML VIAL SC SCH ×3 (08:46→20:23)
[2017-01-16] MEDS: Famotidine/PF 20 mg/2ml Vial SLOW IVP SCH (08:47)
[2017-01-16] MEDS: Meropenem 500 MG, Admixture Fee 1 EACH in Sterile Water 10 ML SLOW IVP SCH ×2 (08:48→20:24)
[2017-01-16] MEDS: Aspirin 300 MG Suppository PR SCH (08:53)
--- NOTE | 2017-01-16 09:20 | PRG ---
DATE OF SERVICE: 01/16/2017 The patient is sleeping. She was apparently given some Ativan last night. PHYSICAL EXAMINATION: VITAL SIGNS: Temperature 97.7, pulse 93, respiration 20, O2 sat 97% on 2 liters, blood pressure 162/ 62. HEENT: Unremarkable. NECK: No JVD. CHEST: Clear. CARDIAC: S1 and S2 regular. ABDOMEN: Soft. EXTREMITIES: No edema. LABORATORY DATA: Sodium 142, potassium 3.4, chloride 106, CO2 30, BUN 10, creatinine 0.9, glucose 16 1. Her last lithium level was 1.4 yesterday. ASSESSMENT: 1. Chronic lithium toxicity which is better after dialysis. 2. Encephalopathy - probably somewhat worse due to the Ativan and/or Haldol she received yesterday. PLAN: I would limit sedation as much as possible. Continue care in the Intermediate Care Unit until her mental status improves.
--- NOTE | 2017-01-16 12:21 | PQF ---
DATE: 01-16-17 ATTN: DR. FAUSTINO PEREZ Please exercise your independent, professional judgment in responding to the clarification form. Clinical indicators are provided on the bottom of this form for your review Please check appropriate box(s) to clarify if the following diagnosis has been ruled in our ruled out: SEPSIS (CDI/Coding list diagnosis here) [ ] Ruled in diagnosis [ ] Continue to treat [ ] Resolved [ ] Ruled out diagnosis [ ] Other diagnosis [ x ] Unable to determine In addition, please specify: Present on Admission (POA): [ ] Yes [ ] No [ x ] Unable to determine For continuity of documentation, please document condition throughout progress notes and discharge summary. Thank You. CLINICAL INDICATORS - SIGNS / SYMPTOMS / LABS H&P: ALTERED MENTATION/TOXIC METABOLIC ENCEPHALOPATHY, LEUKOCYTOSIS SUSPECTED SEPSIS OF UNCLEAR ETIOLOGY CONSULT NOTE DR. POLANCO 01-15-17: I AGREE WITH EMPIRIC ANTIBIOTICS FOR POSSIBLE UROSEPSIS WBC: 01-12-17: 22.0 01-13-17: 20.9 01-14-17: 29.2 01-15-17: 22.1 TEMP: 01-14-17: 99.8, 99.7 RR: 01-13-17: 24 01-14-17: 26 01-15-17: 30 RISK FACTORS: H&P: ALTERED MENTATION/TOXIC METABOLIC ENCEPHALOPATHY, LEUKOCYTOSIS SUSPECTED SEPSIS OF UNCLEAR ETIOLOGY DM 2, FIDEL TREATMENTS: IVF ( 01-15-17) MEROPENEM (01-13-17 (This form is maintained as a part of the permanent medical record) 2014 [employer] All Rights Reserved [email or web address] Office: [phone] [facility] HOSPITALEmily
--- NOTE | 2017-01-16 12:44 | PQF ---
DATE: 01-16-17 ATTN: DR. FAUSTINO PEREZ Please exercise your independent, professional judgment in responding to the clarification form. Clinical indicators are provided on the bottom of this form for your review Please check appropriate box(s): [ x ] UTI UTI Site: [ ] Kidney [ ] Ureter [ x ] Bladder [ ] Urethra [ ] Unable to determine Specify Organism (if known): [ ] Unknown organism [ ] Contaminated urine specimen without UTI [ ] Other diagnosis [ ] Unable to determine In addition, please specify: Present on Admission (POA): [ x ] Yes [ ] No [ ] Unable to determine For continuity of documentation, please document condition throughout progress notes and discharge summary. Thank You. CLINICAL INDICATORS - SIGNS / SYMPTOMS / LABS CONSULT NOTE DR. POLANCO 01-15-17: I AGREE WITH THE EMPIRIC ANTIBIOTICS FOR POSSIBLE UROSEPSIS AND WE WILL FOLLOW UP AND SEE HOW SHE RESPONDS. URINE: 01-14-17: URINE PROTEIN 100 H URINE GLUCOSE 500 H URINE KETONES 15 H UR LEUKOCYTE ESTERASE SMALL H URINE WBC 21-50 H RISKS: H&P: DM 2, DEHYDRATION, AMS/TOXIC METABOLIC ENCEPHALOPATHY TREATMENTS: IVF ( 01-15-17) MEROPENEM (01-13-17 (This form is maintained as a part of the permanent medical record) 2014 [employer] All Rights Reserved [email or web address] Office: [phone] [facility] CENTEREmily
--- NOTE | 2017-01-16 13:22 | PDOC.PN ---
- Subjective Encounter Start Date: 01/16/17 Encounter Start Time: 13:20 Subjective: f/u for AMS and [place] toxicity s/p HD x 2 sessions. Nsg reports pt -: sleeping for first time in days after extreme agitation. - Objective Resuscitation Status: Resuscitation Status FULL:Full Resuscitation MAR Reviewed: Yes Vital Signs & Weight: Vital Signs (12 hours) Temp Pulse Resp BP Pulse Ox 01/16/17 11:28 97.8 F 82 20 154/79 H 100 01/16/17 07:13 97.7 F 93 20 99 01/16/17 07:03 97.1 F L 92 24 H 162/62 H 96 01/16/17 04:12 97.7 F 93 20 135/63 97 Weight Admit Weight 220 lb 9.6 oz Weight 221 lb I&O: 01/15/17 01/16/17 01/17/17 06:59 06:59 06:59 Intake Total 2095 1810 Output Total 730 750 Balance 1365 1060 Result Diagrams: 01/15/17 05:00 01/16/17 04:10 Additional Labs: Accuchecks 01/16/17 01/16/17 01/15/17 10:27 05:15 20:06 POC Glucose 183 H 154 H 149 H 01/15/17 16:09 POC Glucose 122 H Microbiology 01/14/17 09:40 Stool Stool Lactoferrin - Final 01/14/17 09:40 Stool Stool Culture - Final Yeast species 01/14/17 09:40 Stool Campylobacter Antigen Assay - Final 01/14/17 09:40 Stool Shiga Toxin Test - Final 01/14/17 09:40 Stool C. difficile GDH Antigen & Toxins - Final 01/12/17 16:24 Venous blood - Left Hand Blood Culture - Preliminary NO GROWTH AT 48 HOURS 01/12/17 16:23 Venous blood - Right Arm Blood Culture - Preliminary NO GROWTH AT 48 HOURS Laboratory Tests 01/12/17 01/13/17 01/13/17 16:23 04:37 15:39 WBC 22.0 H 20.9 H Hgb 11.3 L 10.8 L Potassium [place] Hep Bs Antigen Non-Reactive 01/13/17 01/14/17 01/14/17 21:05 05:10 05:10 WBC 29.2 H Hgb 9.6 L Potassium [place] 1.107 1.494 H Hep Bs Antigen 01/14/17 01/15/17 01/15/17 16:47 05:00 05:00 WBC Hgb Potassium 3.7 [place] 1.580 H 1.490 H Hep Bs Antigen EKG Reviewed by me: Yes (Tele - SR in 80's) Phys Exam - Physical Examination Constitutional: NAD somnolent, minimally responsive to stimuli Neck: no JVD, supple Respiratory: no wheezing, clear to auscultation bilateral Cardiovascular: RRR Gastrointestinal: soft, non-tender, no distention, positive bowel sounds Musculoskeletal: no edema, pulses present Skin: normal turgor, cap refill <2 seconds Dx/Plan (1) Toxic encephalopathy Code(s): G92 - TOXIC ENCEPHALOPATHY Status: Acute Comment: minimal improvment, continue supportive mgmt and monitor for improvement (2) [place] toxicity Code(s): T56.891A - TOXIC EFFECT OF OTH METALS, ACCIDENTAL (UNINTENTIONAL), INIT Status: Acute Comment: Stable, monitor trend, should improve with improved renal function (3) FIDEL (acute kidney injury) Code(s): N17.9 - ACUTE KIDNEY FAILURE, UNSPECIFIED Status: Acute Comment: Resolving, avoid nephrotoxic meds and contrast media (4) Hypokalemia Code(s): E87.6 - HYPOKALEMIA Status: Acute Comment: mild, KCL replacement (5) Bipolar 1 disorder Code(s): F31.9 - BIPOLAR DISORDER, UNSPECIFIED Status: Chronic (6) Leukocytosis Code(s): D72.829 - ELEVATED WHITE BLOOD CELL COUNT, UNSPECIFIED Status: Acute Comment: Etiology unclear, ? iatrogenic, no focal evidence of infection currently, empiric Meropenem (7) Normocytic anemia Code(s): D64.9 - ANEMIA, UNSPECIFIED Status: Chronic Comment: Stable currently, no evidence of active blood loss - Plan continue antibiotics, school social worker, DVT proph w/SCDs Continue supportive measures -: continue D5NS at 75ml/h -: Limit sedating medications -: Avoid nephrotoxic meds and contrast media -: AM lab: BMP, [place] level * .
[2017-01-16] MEDS: Dextrose 5% in Water 1,000 ML IV SCH (16:29)
--- NOTE | 2017-01-16 20:44 | PRG ---
DATE OF SERVICE: 01/16/2017 SUBJECTIVE: The patient is not very verbal and is very somnolent. OBJECTIVE: GENERAL: This is an obese female who is not responding very well. VITAL SIGNS: Temperature 98.2, pulse 87, blood pressure 122/56. HEENT: Atraumatic, normocephalic. Oral mucosa is moist. NECK: Supple. CARDIOVASCULAR: S1, S2 heard. Rate and rhythm regular. RESPIRATORY: Clear to auscultation. GASTROINTESTINAL: Abdomen is soft. MUSCULOSKELETAL: No tenderness, no edema. DERMATOLOGIC: No skin rash. NEUROLOGIC: Alert and awake and oriented x3. No focal neurologic deficits. Moving all the extremit ies. PSYCHIATRIC: Mood and affect normal. LABORATORY DATA: Potassium is 3.4, BUN is 10, creatinine is 0.9. [place] level yesterday was 1.4. ASSESSMENT AND PLAN: 1. Chronic kidney disease stage 3. Renal function seems to be stable. 2. Acute kidney injury, improved. 3. Hyponatremia. Sodium level is stable at 142. 4. Elevated lithium level, but not toxic, no indication for dialysis. 5. Altered mentation. Follow up with Nephrology. I will sign off. Please call back with any questions.
[2017-01-17 05:04] LABS: Anion Gap 8 mmol/L (10-20); BUN (Urea Nitrogen) 10 mg/dL (9.8-20.1); Calc. Creatinine Clearance 83 mL/min (70-130); Calcium 9.4 mg/dL (7.8-10.44); Carbon Dioxide 31 mmol/L (23-31); Chloride 105 mmol/L (98-107); Estimated GFR-MDRD 56
[2017-01-17] MEDS: Dextrose 5% in Water 1,000 ML IV SCH ×2 (05:25→14:00)
[2017-01-17] MEDS: Docusate 100 MG CAP PO SCH ×2 (08:11→20:34)
[2017-01-17] MEDS ORDERED: Potassium Chloride 40 MEQ in Premix Bag 1 BAG IVPB SCH (08:30)
[2017-01-17] MEDS: Aspirin 300 MG Suppository PR SCH (09:01)
[2017-01-17] MEDS: Famotidine/PF 20 mg/2ml Vial SLOW IVP SCH (09:02)
[2017-01-17] MEDS: Heparin 5,000 UNITS/ML VIAL SC SCH ×3 (09:02→20:34)
--- NOTE | 2017-01-17 09:03 | PRG ---
DATE OF SERVICE: 01/17/2017 SUBJECTIVE: The patient is as coherent as I have seen her during this admission. She is able to say a few understandable words. OBJECTIVE: VITAL SIGNS: Temperature is 99.1 with a T-max of 100.4, pulse 64, respirations 20, O2 saturation 97% , blood pressure 143/61. HEENT: Unremarkable. NECK: No JVD. CHEST: Clear. CARDIAC: S1 and S2 regular. ABDOMEN: Soft. EXTREMITIES: No edema. She moves all 4 extremities without difficulty. LABORATORY DATA: Her lithium level is down to 0.78. Sodium 141, potassium 3.2, chloride 105, CO2 of 31, BUN 10, creatinine 0.9, glucose 171. ASSESSMENT: [place] toxicity with altered mental status. Possible aspiration pneumonia. PLAN: 1. Continue meropenem. 2. Continue current supportive care. 3. Replace potassium.
[2017-01-17] MEDS: Potassium Chloride 40 MEQ in Sodium Chloride 0.9% 250 ML 250 ML IVPB SCH ×3 (09:06→13:58)
[2017-01-17] MEDS: Meropenem 500 MG, Admixture Fee 1 EACH in Sterile Water 10 ML SLOW IVP SCH ×2 (11:59→20:34)
[2017-01-17] MEDS ORDERED: Ketorolac Tromethamine 30 MG/ML VIAL IVP SCH (13:45)
--- NOTE | 2017-01-17 15:12 | PDOC.PN ---
- Subjective Encounter Start Date: 01/17/17 Encounter Start Time: 15:00 Subjective: f/u for metabolic encephalopathy due to [place] toxicity. Overall mild -: improvement and waking up per family. - Objective Resuscitation Status: Resuscitation Status FULL:Full Resuscitation MAR Reviewed: Yes Vital Signs & Weight: Vital Signs (12 hours) Temp Pulse Resp BP BP BP Pulse Ox 01/17/17 12:00 100.1 F H 60 20 172/56 H 01/17/17 08:57 149/69 H 150/55 H 01/17/17 08:00 99.1 F 64 20 95 01/17/17 07:38 99.1 F 64 20 143/61 H 97 01/17/17 04:21 100.4 F H 62 19 127/57 L 96 Weight Admit Weight 220 lb 9.6 oz Weight 220 lb 11.2 oz I&O: 01/16/17 01/17/17 01/18/17 06:59 06:59 06:59 Intake Total 1810 1719 Output Total 750 1200 Balance 1060 519 Result Diagrams: 01/15/17 05:00 01/17/17 04:30 Additional Labs: Accuchecks 01/17/17 01/16/17 01/16/17 05:45 20:29 16:28 POC Glucose 175 H 117 H 135 H Microbiology 01/14/17 09:40 Stool Stool Lactoferrin - Final 01/14/17 09:40 Stool Stool Culture - Final Yeast species 01/14/17 09:40 Stool Campylobacter Antigen Assay - Final 01/14/17 09:40 Stool Shiga Toxin Test - Final 01/14/17 09:40 Stool C. difficile GDH Antigen & Toxins - Final 01/12/17 16:24 Venous blood - Left Hand Blood Culture - Preliminary NO GROWTH AT 48 HOURS 01/12/17 16:23 Venous blood - Right Arm Blood Culture - Preliminary NO GROWTH AT 48 HOURS Laboratory Tests 01/12/17 01/13/17 01/13/17 16:23 04:37 15:39 WBC 22.0 H 20.9 H Hgb 11.3 L 10.8 L Potassium [place] Hep Bs Antigen Non-Reactive 01/13/17 01/14/17 01/14/17 21:05 05:10 05:10 WBC 29.2 H Hgb 9.6 L Potassium [place] 1.107 1.494 H Hep Bs Antigen 01/14/17 01/15/17 01/15/17 16:47 05:00 05:00 WBC Hgb Potassium 3.7 [place] 1.580 H 1.490 H Hep Bs Antigen 01/16/17 01/17/17 04:10 04:30 WBC Hgb Potassium 3.4 L [place] 0.788 L Hep Bs Antigen EKG Reviewed by me: Yes (Tele - SR in 80's) Phys Exam - Physical Examination mumbles her name, random arm movements HEENT: PERRLA, oral pharynx no lesions Neck: no JVD, supple Respiratory: no wheezing, clear to auscultation bilateral Cardiovascular: RRR Gastrointestinal: soft, non-tender, no distention, positive bowel sounds Musculoskeletal: no edema, pulses present Neurological: normal sensation, moves all 4 limbs Skin: normal turgor, cap refill <2 seconds Dx/Plan (1) Toxic encephalopathy Code(s): G92 - TOXIC ENCEPHALOPATHY Status: Acute Comment: minimal improvment, continue supportive mgmt and monitor for improvement (2) [place] toxicity Code(s): T56.891A - TOXIC EFFECT OF OTH METALS, ACCIDENTAL (UNINTENTIONAL), INIT Status: Acute Comment: Stable, monitor trend, should improve with improved renal function (3) FIDEL (acute kidney injury) Code(s): N17.9 - ACUTE KIDNEY FAILURE, UNSPECIFIED Status: Acute Comment: Resolving, avoid nephrotoxic meds and contrast media (4) Hypokalemia Code(s): E87.6 - HYPOKALEMIA Status: Acute Comment: mild, KCL replacement (5) Bipolar 1 disorder Code(s): F31.9 - BIPOLAR DISORDER, UNSPECIFIED Status: Chronic (6) Leukocytosis Code(s): D72.829 - ELEVATED WHITE BLOOD CELL COUNT, UNSPECIFIED Status: Acute Comment: Etiology unclear, ? iatrogenic, no focal evidence of infection currently, empiric Meropenem (7) Normocytic anemia Code(s): D64.9 - ANEMIA, UNSPECIFIED Status: Chronic Comment: Stable currently, no evidence of active blood loss (8) UTI (urinary tract infection) Status: Suspected Comment: Suspected but no Ucx available, empiric Meropenem, low-grade temp noted, consider 3rd generation Cephalosporin if fever recurs - Plan plan discussed w/ family, continue antibiotics, PT/OT, social service manager, DVT proph w/SCDs Stable currently -: Continue supportive mgmt -: Rocephin 2gm IV q24h, re-submit Ucx -: Toradol 15mg IV prn fever -: KCl replacement, repeat K+ level in am * AM lab: BMP, CBC
[2017-01-17] MEDS ORDERED: cefTRIAXone\\ROCEPHIN 2 GM in Sodium Chloride 0.9% 100 ML IVPB SCH (17:00)
--- NOTE | 2017-01-17 22:04 | PRG ---
DATE OF SERVICE: 01/17/2017 SUBJECTIVE: Ms. Pulido continues to be encephalopathic. She appears to be awake and arouse arou nd a bit. She reportedly said a few words to the nursing staff, I could not get her to follow any co mmands or answer appropriately at this point. OBJECTIVE: Her vital signs have been stable. Her exam remains nonfocal. LABORATORY DATA: Suggested lab studies appear to be pending. Reorder her thyroid, cortisol, and ammonia levels. I am going to go ahead and order an EEG and follo w up on that.
[2017-01-18 05:17] LABS: Anion Gap 8 mmol/L (10-20); BUN (Urea Nitrogen) 10 mg/dL (9.8-20.1); Calc. Creatinine Clearance 77 mL/min (70-130); Calcium 9.4 mg/dL (7.8-10.44); Carbon Dioxide 30 mmol/L (23-31); Chloride 106 mmol/L (98-107); Estimated GFR-MDRD 52
[2017-01-18 05:51] LABS: Band 1 % (5-11); Hematocrit 28.7 % (36.0-47.0); Mean Platelet Volume 10.6 fL (7.4-10.4); Neutrophil 75 % (42-75); Red Blood Cell (RBC) Count 2.96 mill/uL (4.20-5.40); White Blood Cell (WBC) Count 14.6 thou/uL (4.8-10.8)
[2017-01-18] MEDS: Dextrose 5% in Water 1,000 ML IV SCH ×2 (06:24→07:24)
[2017-01-18] MEDS: Aspirin 300 MG Suppository PR SCH (07:22)
[2017-01-18] MEDS: Famotidine/PF 20 mg/2ml Vial SLOW IVP SCH (07:23)
[2017-01-18] MEDS: Heparin 5,000 UNITS/ML VIAL SC SCH ×2 (07:23→16:19)
[2017-01-18] MEDS: Meropenem 500 MG, Admixture Fee 1 EACH in Sterile Water 10 ML SLOW IVP SCH (07:24)
[2017-01-18] MEDS: Docusate 100 MG CAP PO SCH ×2 (07:24→21:07)
--- NOTE | 2017-01-18 09:02 | PRG ---
DATE OF SERVICE: 01/18/2017 The patient remains encephalopathic. As I was seeing her this morning she was having an EEG kate d. When I speak with her, she can give me some simple answers, the words are difficult to understand and the answers are not always appropriate. PHYSICAL EXAMINATION: VITAL SIGNS: Temperature 98.5, pulse 61, respirations 20, O2 sat 98% on 2 liters, blood pressure 157 /65. HEENT: Pupils react. Sclerae are anicteric. Oropharynx clear. NECK: No JVD. LUNGS: Clear to auscultation without wheezing. CARDIOVASCULAR: S1, S2 regular. ABDOMEN: Soft, nontender. EXTREMITIES: No clubbing, cyanosis, or edema. LABORATORY DATA: Sodium 140, potassium 3.5, chloride 106, CO2 30, BUN 10, creatinine 1.0, glucose 16 5. [place] level 0.7. White blood cell count 14.6, hematocrit 28.7, platelet count 213. ASSESSMENT: 1. Encephalopathy, which is likely metabolic in nature. 2. Status post lithium overdose which was chronic. PLAN: Continue supportive care. Not much to add to the current management.
[2017-01-18 10:05] LABS: #Basophils 0.1 thou/uL (0.0-0.2); #Eosinphils 0.5 thou/uL (0.0-0.7); #Lymphocytes 2.2 thou/uL (1.20-3.40); #Monocytes 1.5 thou/uL (0.11-0.59); #Neutrophils 11.8 thou/uL (1.40-6.50); %Basophils 0.4 % (0.0-1.0); %Eosinophils 3.3 % (0.0-10.0); %Lymphocytes 13.8 % (21.0-51.0); %Monocytes 9.1 % (0.0-10.0); Hematocrit 27.6 % (36.0-47.0); Mean Platelet Volume 9.7 fL (7.4-10.4); Red Blood Cell (RBC) Count 2.82 mill/uL (4.20-5.40); White Blood Cell (WBC) Count 16.1 thou/uL (4.8-10.8)
[2017-01-18 10:11] LABS: PTT 30.8 SEC (22.9-36.1); Prothrombin Time 15.5 SEC (12.0-14.7)
[2017-01-18 10:18] LABS: Anion Gap 10 mmol/L (10-20); BUN (Urea Nitrogen) 10 mg/dL (9.8-20.1); Calc. Creatinine Clearance 81 mL/min (70-130); Calcium 9.1 mg/dL (7.8-10.44); Carbon Dioxide 26 mmol/L (23-31); Chloride 105 mmol/L (98-107); Estimated GFR-MDRD 55
--- NOTE | 2017-01-18 11:14 | CT ---
CT ABDOMEN NONCONTRAST CT PELVIS NONCONTRAST: (urolithiasis protocol) DATE: 01-18-17 HISTORY: Iatrogenic dialysis catheter placement into right femoral artery rather than right femoral vein. Rule out retroperitoneal hematoma. Dr. Burks discussed the findings by telephone with Dr. Simmons, as requested, at approximately 10:39 a. m. on 01-18-17. COMPARISON: 01-12-17 TECHNIQUE: IV injection of iodinated contrast media: none Oral contrast media: none FINDINGS: Other than for urolithiasis, the lack of IV and oral contrast limits the evaluation. There is a new large soft tissue hematoma in the anterior aspect of the right proximal thigh. The mar gins are ill-defined, and the hematoma is infiltrative, such that there is no one discrete mass. Inst ead, the rough dimensions of the entire infiltrative hematoma complex, measures approximately 20 cm c raniocaudal x 10 cm transverse x 5 cm anteroposterior. The hematoma is located anterior to the right proximal superficial femoral artery and superficial femoral vein. The hematoma does not extend into [facility] right pelvic cavity, and there is no retroperitoneal hematoma. There is a small amount of free flu id in the right, posterior, dependent portion of the pelvic cavity, adjacent to the rectum, which is a new finding since the previous CT. Previously, the urinary bladder was distended, but currently the re is a Eubanks catheter in the decompressed urinary bladder. Bladder jhaveri are diffusely thickened, a new finding since the previous CT. There is high density material within the lumen of what appears to be the appendix, with normal caliber. There are no renal, ureteral, or bladder calculi. No small bow el dilatation. Within limitations of a noncontrast scan, no major pathology is identified involving [facility] bilateral kidneys, adrenals, pancreas, liver or spleen. No hydronephrosis. There is another new fi nding of bilateral pleural effusions, small to moderate sized on the right and small on the left, wit h adjacent passive atelectasis. No pneumoperitoneum. There is another new finding of large bands of e jeannette in the subcutaneous fat of the bilateral flanks. IMPRESSION: 1. Large hematoma in the right anterior proximal thigh. 2. No hematoma within the pelvic cavity or retroperitoneum. 3. Small bilateral pleural effusions, right greater than left. 4. Edema in the subcutaneous fat of the bilateral flanks. 5. Small amount of free fluid within the pelvic cavity, nonspecific. 6. Diffuse mural thickening of a decompressed urinary bladder with Eubanks catheter. JANIS Verde POS: [place]
--- NOTE | 2017-01-18 15:54 | PDOC.PN ---
- Subjective Encounter Start Date: 01/18/17 Encounter Start Time: 15:55 Subjective: f/u for AMS improving per nsg and family. Had removal of HD cath this am -: with hemorrhage requiring pressure and hypotension with 3L IVF's given. - Objective Resuscitation Status: Resuscitation Status FULL:Full Resuscitation MAR Reviewed: Yes Vital Signs & Weight: Vital Signs (12 hours) Temp Pulse Resp BP BP Pulse Ox 01/18/17 11:22 96.8 F L 80 20 133/63 100 01/18/17 07:35 98.5 F 61 20 98 01/18/17 07:34 98.5 F 61 20 157/65 H 98 01/18/17 04:43 127/75 01/18/17 04:18 97.3 F L 64 20 99 Weight Admit Weight 220 lb 9.6 oz Weight 221 lb 8 oz I&O: 01/17/17 01/18/17 01/19/17 06:59 06:59 06:59 Intake Total 1719 1590 Output Total 1200 1300 Balance 519 290 Result Diagrams: 01/18/17 09:54 01/18/17 09:54 Additional Labs: Accuchecks 01/18/17 01/17/17 01/17/17 05:06 20:26 16:16 POC Glucose 149 H 133 H 159 H 01/17/17 11:15 POC Glucose 167 H Microbiology 01/14/17 09:40 Stool Stool Lactoferrin - Final 01/14/17 09:40 Stool Stool Culture - Final Yeast species 01/14/17 09:40 Stool Campylobacter Antigen Assay - Final 01/14/17 09:40 Stool Shiga Toxin Test - Final 01/14/17 09:40 Stool C. difficile GDH Antigen & Toxins - Final 01/12/17 16:24 Venous blood - Left Hand Blood Culture - Preliminary NO GROWTH AT 48 HOURS 01/12/17 16:23 Venous blood - Right Arm Blood Culture - Preliminary NO GROWTH AT 48 HOURS Laboratory Tests 01/12/17 01/13/17 01/13/17 16:23 04:37 15:39 WBC 22.0 H 20.9 H Hgb 11.3 L 10.8 L PT INR APTT Potassium Ammonia [place] Hep Bs Antigen Non-Reactive 01/13/17 01/14/17 01/14/17 21:05 05:10 05:10 WBC 29.2 H Hgb 9.6 L PT INR APTT Potassium Ammonia [place] 1.107 1.494 H Hep Bs Antigen 01/14/17 01/15/17 01/15/17 16:47 05:00 05:00 WBC 22.1 H Hgb 9.3 L PT INR APTT Potassium 3.7 Ammonia [place] 1.580 H Hep Bs Antigen 01/15/17 01/16/17 01/17/17 05:00 04:10 04:30 WBC Hgb PT INR APTT Potassium 3.4 L Ammonia [place] 1.490 H 0.788 L Hep Bs Antigen 01/18/17 01/18/17 01/18/17 03:45 03:45 04:20 WBC 14.6 H Hgb 9.1 L PT INR APTT Potassium Ammonia 31 [place] 0.736 L Hep Bs Antigen 01/18/17 09:54 WBC Hgb PT 15.5 H INR 1.2 APTT 30.8 Potassium Ammonia [place] Hep Bs Antigen Radiology Reviewed by me: Yes (CT abd/pel - large R thigh hematoma, no retroperitoneal involvement) EKG Reviewed by me: Yes (Tele - SR with intermittent pacing) Phys Exam - Physical Examination mumbles words incoherently, tracks with eyes briefly, moves extremities randomly HEENT: PERRLA, oral pharynx no lesions Neck: no JVD, supple Respiratory: no wheezing, clear to auscultation bilateral Cardiovascular: RRR Gastrointestinal: soft, non-tender, no distention, positive bowel sounds R thigh with edema Musculoskeletal: pulses present Neurological: moves all 4 limbs A x O x 2 Skin: normal turgor, cap refill <2 seconds Dx/Plan (1) Toxic encephalopathy Code(s): G92 - TOXIC ENCEPHALOPATHY Status: Acute Comment: minimal improvment, continue supportive mgmt and monitor for improvement (2) [place] toxicity Code(s): T56.891A - TOXIC EFFECT OF OTH METALS, ACCIDENTAL (UNINTENTIONAL), INIT Status: Acute Comment: Stable, monitor trend, should improve with improved renal function (3) FIDEL (acute kidney injury) Code(s): N17.9 - ACUTE KIDNEY FAILURE, UNSPECIFIED Status: Acute Comment: Resolving, avoid nephrotoxic meds and contrast media (4) Hypokalemia Code(s): E87.6 - HYPOKALEMIA Status: Acute Comment: mild, KCL replacement (5) Bipolar 1 disorder Code(s): F31.9 - BIPOLAR DISORDER, UNSPECIFIED Status: Chronic (6) Leukocytosis Code(s): D72.829 - ELEVATED WHITE BLOOD CELL COUNT, UNSPECIFIED Status: Acute Comment: Etiology unclear, ? iatrogenic, no focal evidence of infection currently, empiric Meropenem (7) Normocytic anemia Code(s): D64.9 - ANEMIA, UNSPECIFIED Status: Chronic Comment: Stable currently, no evidence of active blood loss (8) UTI (urinary tract infection) Status: Suspected Comment: Suspected but no Ucx available, empiric Meropenem, low-grade temp noted, consider 3rd generation Cephalosporin if fever recurs - Plan plan discussed w/ family, continue antibiotics, PT/OT, social worker delinquency prevention, speech therapy, DVT proph w/SCDs Transfuse 1u PRBC's today -: Monitor for recurrence of bleeding at HD femoral site -: Continue supportive mgmt -: D/C Heparin ppx -: AM lab: BMP, CBC * Repeat BUCKRAM SEWER for dysphagia in am, hold po intake
[2017-01-18 16:12] LABS: Hematocrit 22.4 % (36.0-47.0); Mean Platelet Volume 9.1 fL (7.4-10.4); White Blood Cell (WBC) Count 20.1 thou/uL (4.8-10.8)
[2017-01-18 16:26] LABS: Band 3 % (5-11); Basophilic Stippling SLIGHT = 1-2 cells (100X) (None Seen); Neutrophil 77 % (42-75); Polychromasia MODERATE = 3-4 cells (100X) (0-2/hpf); Tear Drops SLIGHT = 2-5 cells (100X) (0-1/hpf)
[2017-01-18] MEDS: cefTRIAXone\\ROCEPHIN 2 GM in Sodium Chloride 0.9% 100 ML IVPB SCH (21:11)
[2017-01-18] MEDS ORDERED: Meropenem 500 MG, Admixture Fee 1 EACH in Sterile Water 10 ML SLOW IVP SCH (22:00)
--- NOTE | 2017-01-18 23:23 | PRG ---
DATE OF SERVICE: 01/18/2017 SUBJECTIVE: The patient's femoral dialysis catheter was removed. The patient was seen and examined at bedside. The patient is nonverbal and she is just mourning and not able to give a good history. Femoral dialysis catheter from the right groin was removed today and had probably arterial bleeding a nd was involved in helping with the stoppage of the bleeding. OBJECTIVE: GENERAL: This is a morbidly obese female in no apparent distress. VITAL SIGNS: Temperature 97, pulse 80, respirations 20, blood pressure 133/63. HEENT: Atraumatic, normocephalic. Oral mucosa is moist. NECK: Supple. CARDIOVASCULAR: S1, S2 heard. Rate and rhythm regular. RESPIRATORY: Clear to auscultation. GASTROINTESTINAL: Abdomen is soft. MUSCULOSKELETAL: No tenderness. No edema. DERMATOLOGIC: No skin rash. NEUROLOGIC: Alert and awake and oriented x3. No focal neurologic deficits. Moving all the extremit ies. PSYCHIATRIC: Mood and affect normal. LABORATORY DATA: Potassium 4.1, creatinine 0.9. ASSESSMENT AND PLAN: 1. Chronic kidney disease stage III. Renal function is stable. 2. [place] toxicity. [place] level is better. 3. Altered mentation. Follow up Neurology. 4. Hyponatremia. 5. Acute kidney injury, stable. 6. Bleeding from right femoral dialysis catheter, of femoral catheter. Surgery notified and t he patient was given a lot of fluids today and transfuse p.r.n. Surgeon notified of bleeding and Dr. Lay is aware. We will sign off for now.
[2017-01-19 05:08] LABS: Anion Gap 8 mmol/L (10-20); BUN (Urea Nitrogen) 9 mg/dL (9.8-20.1); Calc. Creatinine Clearance 86 mL/min (70-130); Calcium 8.9 mg/dL (7.8-10.44); Carbon Dioxide 28 mmol/L (23-31); Chloride 110 mmol/L (98-107); Estimated GFR-MDRD 59
[2017-01-19 05:56] LABS: Band 2 % (5-11); Mean Platelet Volume 9.7 fL (7.4-10.4); Metamyelocyte 1 % (0-0); Myelocyte 1 % (0-0); Neutrophil 72 % (42-75); White Blood Cell (WBC) Count 16.8 thou/uL (4.8-10.8)
[2017-01-19] MEDS: Dextrose 5% in Water 1,000 ML IV SCH ×2 (06:19→11:23)
[2017-01-19] MEDS: Famotidine/PF 20 mg/2ml Vial SLOW IVP SCH (08:23)
[2017-01-19] MEDS: Docusate 100 MG CAP PO SCH ×2 (08:26→21:29)
--- NOTE | 2017-01-19 08:26 | EEG ---
Referring Physician: Marlyn POLANCO EEG # [id number] TEST TYPE: ROUTINE PORTABLE INPATIENT REPORT: AN EEG USING THE INTERNATIONAL TEN-TWENTY SYSTEM OF ELECTRODE PLACEMENT WAS PERFORMED. The best waking background is a 10 hertz alpha frequency which is poorly maintained. Intermixed slowing in the theta frequency range was seen over both hemispheres. Photic stimulation was unremarkable. No epileptiform features were seen. IMPRESSION: THIS IS AN ABNORMAL STUDY FOR THE FINDINGS OF INTERMIXED SLOWING CONSISTENT WITH A DIFFUSE ENCEPHALOPATHIC PROCESS. Chest Painting And Sealing Supervisor: CELINA Commercial Artist Lettering: EEG.OLIVER WHITTINGTON
[2017-01-19] MEDS: Aspirin 300 MG Suppository PR SCH (08:27)
--- NOTE | 2017-01-19 08:59 | PRG ---
DATE OF SERVICE: 01/19/2017 The patient is actually very talkative today, still somewhat confused. PHYSICAL EXAMINATION: VITAL SIGNS: Temperature is 98.3, pulse 75, respirations 20, O2 sat 96%, blood pressure 150/60. HEENT: Unremarkable. NECK: No JVD. CHEST: Clear. CARDIAC: S1, S2 regular. ABDOMEN: Soft. EXTREMITIES: She has a bruise over her right flank. LABORATORY DATA: White blood cell count 16, hematocrit 25, platelet count 203. Sodium 143, potassiu m 3.4, chloride 110, CO2 28, BUN 9, creatinine 0.9, glucose 176. ASSESSMENT: 1. Status post lithium toxicity. 2. Metabolic encephalopathy with improvement. PLAN: The patient can likely be transferred out to the floor. No more dialysis is needed. Continue generalized supportive care. Pulmonary is available as needed for problems.
[2017-01-19] MEDS: Potassium Chloride 40 MEQ in Sodium Chloride 0.9% 250 ML 250 ML IVPB SCH (10:02)
[2017-01-19] MEDS: SODIUM CHLORIDE SLOW IVP SCH ×2 (10:13→21:29)
[2017-01-19] MEDS: ADMIXTURE FEE SLOW IVP SCH ×2 (10:13→21:29)
[2017-01-19] MEDS: MEROPENEM SLOW IVP SCH ×2 (10:13→21:29)
[2017-01-19] MEDS ORDERED: guaiFENesin/Dextromethorphan 10 ML UDCUP PO PRN (13:58)
--- NOTE | 2017-01-19 13:59 | PDOC.PN ---
- Subjective Encounter Start Date: 01/19/17 Encounter Start Time: 13:40 Subjective: f/u for AMS due to [place] toxicity. Improved overall and talking with nsg. -: Some residual confusion but following commands. Took pureed diet today -: now coughing. - Objective Resuscitation Status: Resuscitation Status FULL:Full Resuscitation MAR Reviewed: Yes Vital Signs & Weight: Vital Signs (12 hours) Temp Pulse Resp BP Pulse Ox 01/19/17 12:16 166/73 H 01/19/17 12:00 98.4 F 59 L 20 184/66 H 100 01/19/17 11:28 166/63 H 01/19/17 08:20 98.3 F 75 20 01/19/17 07:51 98.3 F 75 20 150/60 H 96 01/19/17 04:00 98.4 F 66 20 157/66 H 96 Weight Admit Weight 220 lb 9.6 oz Weight 223 lb 14.4 oz I&O: 01/18/17 01/19/17 01/20/17 06:59 06:59 06:59 Intake Total 1590 4982 200 Output Total 1300 1650 Balance 290 3332 200 Result Diagrams: 01/19/17 04:36 01/19/17 04:36 Additional Labs: Accuchecks 01/19/17 01/18/17 01/18/17 05:30 20:12 16:31 POC Glucose 158 H 138 H 139 H Microbiology 01/14/17 09:40 Stool Stool Lactoferrin - Final 01/14/17 09:40 Stool Stool Culture - Final Yeast species 01/14/17 09:40 Stool Campylobacter Antigen Assay - Final 01/14/17 09:40 Stool Shiga Toxin Test - Final 01/14/17 09:40 Stool C. difficile GDH Antigen & Toxins - Final 01/17/17 16:00 Urine bullard catheter Urine Culture - Preliminary NO GROWTH AT 24 HOURS 01/12/17 16:24 Venous blood - Left Hand Blood Culture - Preliminary NO GROWTH AT 48 HOURS 01/12/17 16:23 Venous blood - Right Arm Blood Culture - Preliminary NO GROWTH AT 48 HOURS Laboratory Tests 01/12/17 01/13/17 01/13/17 16:23 04:37 15:39 WBC 22.0 H 20.9 H Hgb 11.3 L 10.8 L PT INR APTT Potassium Ammonia [place] Hep Bs Antigen Non-Reactive 01/13/17 01/14/17 01/14/17 21:05 05:10 05:10 WBC 29.2 H Hgb 9.6 L PT INR APTT Potassium Ammonia [place] 1.107 1.494 H Hep Bs Antigen 01/14/17 01/15/17 01/15/17 16:47 05:00 05:00 WBC 22.1 H Hgb 9.3 L PT INR APTT Potassium 3.7 Ammonia [place] 1.580 H Hep Bs Antigen 01/15/17 01/16/17 01/17/17 05:00 04:10 04:30 WBC Hgb PT INR APTT Potassium 3.4 L Ammonia [place] 1.490 H 0.788 L Hep Bs Antigen 01/18/17 01/18/17 01/18/17 03:45 03:45 04:20 WBC 14.6 H Hgb 9.1 L PT INR APTT Potassium Ammonia 31 [place] 0.736 L Hep Bs Antigen 01/18/17 01/18/17 01/18/17 09:54 09:54 16:02 WBC 20.1 H Hgb 7.1 L PT 15.5 H INR 1.2 APTT 30.8 Potassium 4.1 Ammonia [place] Hep Bs Antigen EKG Reviewed by me: Yes (Tele - SR, V-pacing) Phys Exam - Physical Examination Constitutional: NAD alert, responsive to questions HEENT: PERRLA, oral pharynx no lesions Neck: no JVD, supple Respiratory: no wheezing, clear to auscultation bilateral Cardiovascular: RRR Gastrointestinal: soft, non-tender, no distention, positive bowel sounds Musculoskeletal: pulses present Neurological: normal sensation, moves all 4 limbs A x O x 2 Skin: normal turgor, cap refill <2 seconds Dx/Plan (1) Toxic encephalopathy Code(s): G92 - TOXIC ENCEPHALOPATHY Status: Acute Comment: slowly improving , continue supportive mgmt and monitor for improvement (2) [place] toxicity Code(s): T56.891A - TOXIC EFFECT OF OTH METALS, ACCIDENTAL (UNINTENTIONAL), INIT Status: Acute Comment: Stable, monitor trend, should improve with improved renal function (3) FIDEL (acute kidney injury) Code(s): N17.9 - ACUTE KIDNEY FAILURE, UNSPECIFIED Status: Acute Comment: Resolving, avoid nephrotoxic meds and contrast media (4) Hypokalemia Code(s): E87.6 - HYPOKALEMIA Status: Acute Comment: mild, KCL replacement (5) Bipolar 1 disorder Code(s): F31.9 - BIPOLAR DISORDER, UNSPECIFIED Status: Chronic (6) Leukocytosis Code(s): D72.829 - ELEVATED WHITE BLOOD CELL COUNT, UNSPECIFIED Status: Acute Comment: Etiology unclear, ? iatrogenic, no focal evidence of infection currently, empiric Meropenem (7) Normocytic anemia Code(s): D64.9 - ANEMIA, UNSPECIFIED Status: Chronic Comment: Stable currently, no evidence of active blood loss (8) UTI (urinary tract infection) Status: Suspected Comment: Suspected but no Ucx available, empiric Meropenem, low-grade temp noted, consider 3rd generation Cephalosporin if fever recurs - Plan continue antibiotics, PT/OT, social service agency director, speech therapy, out of bed/ ambulate, DVT proph w/SCDs Stable currently -: Continue Meropenem and Rocephin another 24h then de-escalate -: Guaifenesin DM 10ml q4h prn -: Duonebs prn -: KCL replacement * LIME SLUDGE KILN OPERATOR for swallowing function, pureed diet currently
[2017-01-19] MEDS: cefTRIAXone\\ROCEPHIN 2 GM in Sodium Chloride 0.9% 100 ML IVPB SCH (21:29)
[2017-01-19] MEDS ORDERED: Guaifenesin DM 100-10/5 ML UDCUP PO PRN (21:45)
[2017-01-20 06:00] LABS: Anion Gap 8 mmol/L (10-20); BUN (Urea Nitrogen) 7 mg/dL (9.8-20.1); Calc. Creatinine Clearance 94 mL/min (70-130); Calcium 8.9 mg/dL (7.8-10.44); Carbon Dioxide 28 mmol/L (23-31); Chloride 107 mmol/L (98-107); Estimated GFR-MDRD 64
--- NOTE | 2017-01-20 08:42 | PRG ---
DATE OF SERVICE: 01/20/2017 The patient is better. She is in no distress. PHYSICAL EXAMINATION: VITAL SIGNS: Temperature 98.3, pulse 61, respiratory rate 22, O2 sat 96%. HEENT: Unremarkable. NECK: No JVD. CHEST: Clear. CARDIAC: S1 and S2 regular. ABDOMEN: Soft. EXTREMITIES: No edema. LABORATORY DATA: Sodium 140, potassium 3.2, chloride 107, CO2 28, BUN 7, creatinine 0.8, glucose 170 . ASSESSMENT: 1. Status post lithium toxicity, now somewhat coherent, albeit confused. 2. Encephalopathy. PLAN: I would agree that her antibiotics can probably be stopped. I think she is ready for placemen t. She is no longer in need of BiPAP. Dr. Velasquez will be available this weekend if help needed.
[2017-01-20] MEDS: Dextrose 5% in Water 1,000 ML IV SCH (08:45)
[2017-01-20] MEDS: Aspirin 81 mg Enteric Coated Tablet PO SCH (08:45)
[2017-01-20] MEDS: Famotidine/PF 20 mg/2ml Vial SLOW IVP SCH (08:46)
[2017-01-20] MEDS: Docusate 100 MG CAP PO SCH ×2 (08:46→20:39)
[2017-01-20] MEDS: Potassium Chloride 40 MEQ in Sodium Chloride 0.9% 250 ML 250 ML IVPB SCH (08:47)
[2017-01-20] MEDS: MEROPENEM SLOW IVP SCH (08:56)
[2017-01-20] MEDS: ADMIXTURE FEE SLOW IVP SCH (08:56)
[2017-01-20] MEDS: SODIUM CHLORIDE SLOW IVP SCH (08:56)
[2017-01-20] MEDS ORDERED: Loperamide HCl 2 MG CAP PO PRN (12:40)
[2017-01-20 12:41] VITALS: BMI 42.5
[2017-01-20] MEDS ORDERED: Loperamide HCl 2 MG CAP PO SCH (12:45)
--- NOTE | 2017-01-20 12:47 | PDOC.PN ---
- Subjective Encounter Start Date: 01/20/17 Encounter Start Time: 08:40 Pt seen for followup re: encephalopathy. Denies chest pain or shortness of breath. - Objective Resuscitation Status: Resuscitation Status FULL:Full Resuscitation MAR Reviewed: Yes Vital Signs & Weight: Vital Signs (12 hours) Temp Pulse Resp BP Pulse Ox 01/20/17 11:11 97.8 F 60 20 146/67 H 94 L 01/20/17 07:33 98.3 F 61 22 H 96 01/20/17 07:04 98.3 F 64 20 148/57 H 94 L 01/20/17 04:00 98.3 F 61 22 H 150/52 H 93 L Weight Admit Weight 220 lb 9.6 oz Weight 225 lb I&O: 01/19/17 01/20/17 01/21/17 06:59 06:59 06:59 Intake Total 4982 2265 Output Total 1650 1400 Balance 3332 865 Result Diagrams: 01/21/17 03:29 01/23/17 04:28 Additional Labs: Accuchecks 01/20/17 01/20/17 01/19/17 10:42 05:49 20:54 POC Glucose 155 H 162 H 168 H 01/19/17 01/19/17 17:08 11:42 POC Glucose 158 H 173 H EKG Reviewed by me: Yes (Tele: A-paced rhythm) Phys Exam - Physical Examination Morbid obesity HEENT: PERRLA, moist MMs Neck: supple Respiratory: clear to auscultation bilateral Cardiovascular: RRR Gastrointestinal: soft, non-tender distention Musculoskeletal: pulses present Neurological: moves all 4 limbs Psychiatric: normal affect Skin: no rash Dx/Plan (1) Acute encephalopathy Code(s): G93.40 - ENCEPHALOPATHY, UNSPECIFIED Status: Acute (2) DM2 (diabetes mellitus, type 2) Status: Chronic (3) HTN (hypertension) Code(s): I10 - ESSENTIAL (PRIMARY) HYPERTENSION Status: Chronic (4) Bipolar disorder Code(s): F31.9 - BIPOLAR DISORDER, UNSPECIFIED Status: Chronic - Plan plan discussed w/ family, PT/OT, out of bed/ambulate, DVT proph w/SCDs * . Discontinue antibiotics and observe. Ambulate pt. Likely placement at [place] on Monday. [place] toxicity resolved. Review of Systems - Review of Systems Respiratory: negative: Cough, Dry, Shortness of Breath, Hemoptysis, SOB with Excertion, Pleuritic Pain, Sputum, Wheezing Cardiovascular: negative: Chest Pain, Palpitations, Orthopnea, Paroxysmal Noc. Dyspnea, Edema, Light Headedness - Medications/Allergies Allergies/Adverse Reactions: Allergies Allergy/AdvReac Type Severity Reaction Status Date / Time aripiprazole [From Abilify] Allergy Verified 01/12/17 17:47 codeine Allergy Verified 01/12/17 17:47 phenylpropanolamine Allergy Verified 01/12/17 17:47 quetiapine [From Seroquel] Allergy Verified 01/12/17 17:47 sertraline [From Zoloft] Allergy Verified 01/12/17 17:47 Medications: Current Medications Acetaminophen (Tylenol) 650 mg PO Q4H PRN PRN Reason: Headache/Fever or Pain Albuterol/Ipratropium (Duoneb) 3 ml NEB [id number] PRN PRN Reason: SOB &/or Wheezing Last Admin: 01/16/17 20:58 Dose: 3 ml Aspirin (Ecotrin) 81 mg PO DAILY [facility] Last Admin: 01/20/17 08:45 Dose: 81 mg Atorvastatin Calcium (Lipitor) 10 mg PO HS [facility] Bisacodyl (Dulcolax) 10 mg MT Q24H PRN PRN Reason: Constipation Carvedilol (Coreg) 6.25 mg PO BID [facility] Cyanocobalamin (Vitamin B-12) 1,000 mcg IM [id number] [facility] Dextrose/Water (Dextrose 50%) 25 gm SLOW IVP PRN PRN PRN Reason: Hypoglycemia Docusate Sodium (Colace) 100 mg PO BID [facility] Last Admin: 01/20/17 08:46 Dose: Not Given Famotidine (Pepcid) 20 mg SLOW IVP DAILY [facility] Last Admin: 01/20/17 08:46 Dose: 20 mg Furosemide (Lasix) 40 mg PO Q2DAYS [facility] Glucagon (Glucagon) 1 mg IM PRN PRN PRN Reason: Hypoglycemia Guaifenesin/Dextromethorphan (Robitussin Dm) 10 ml PO Q6H PRN PRN Reason: Cough Last Admin: 01/19/17 21:48 Dose: 10 ml Haloperidol Lactate (Haldol) 5 mg IM Q4H PRN PRN Reason: Agitation Last Admin: 01/15/17 09:08 Dose: 5 mg Hydralazine HCl (Apresoline) 10 mg SLOW IVP Q4H PRN PRN Reason: SBP Greater Than 180 Dextrose/Water (D5w) 1,000 mls @ 0 mls/hr IV .Q0M PRN; As Directed PRN Reason: Hypoglycemia Dextrose/Water (D5w) 1,000 mls @ 75 mls/hr IV .[id number] [facility] Last Admin: 01/20/17 08:45 Dose: 1,000 mls Potassium Chloride 40 meq/ (Sodium Chloride) 270 mls @ 67.5 mls/hr IVPB 0900 [facility] Last Admin: 01/20/17 08:47 Dose: Not Given Insulin Human Regular (Humulin R) 0 units SC .MILD SLIDING SCALE PRN PRN Reason: Mild Correctional Scale Insulin Human Regular (Humulin R) 0 units SC .BEDTIME SLIDING SC PRN PRN Reason: Bedtime Correctional Scale Levothyroxine Sodium (Synthroid) 50 mcg PO DAILY [facility] Loperamide HCl (Imodium) 2 mg PO PRN PRN PRN Reason: Diarrhea/Loose Stools Loperamide HCl (Imodium) 4 mg PO NOW [facility] Stop: 01/20/17 15:00 Lorazepam (Ativan) 1 mg SLOW IVP Q8H PRN PRN Reason: .AGITATION Last Admin: 01/16/17 04:20 Dose: 1 mg Nitroglycerin (Nitrostat) 0.4 mg PO Q5MIN PRN PRN Reason: Chest Pain Non-Formulary Medication (Clopidogrel Bisulfate [Clopidogrel]) 75 mg PO DAILY [facility] Non-Formulary Medication (Dapagliflozin Propanediol [Farxiga]) 5 mg PO QAM [facility] Non-Formulary Medication (Ergocalciferol (Vitamin D2) [Ergocal]) 5,000 unit PO Q7DAYS [facility] Non-Formulary Medication (Hydrochlorothiazide [Hydrochlorothiazide]) 12.5 mg PO DAILY [facility] Non-Formulary Medication (Irbesartan [Avapro]) 150 mg PO DAILY [facility] Non-Formulary Medication (Metformin Hcl [Glucophage]) 1,000 mg PO BID[facility] Ondansetron HCl (Zofran Odt) 4 mg PO Q6H PRN PRN Reason: Nausea/Vomiting Ondansetron HCl (Zofran) 4 mg IVP Q6H PRN PRN Reason: Nausea/Vomiting Senna (Senokot) 2 tab PO HSPRN PRN PRN Reason: Constipation Sodium Chloride (Flush - Normal Saline) 10 ml IVF PRN PRN PRN Reason: Saline Flush Last Admin: 01/13/17 04:51 Dose: 10 ml Sodium Chloride (Flush - Normal Saline) 10 ml IVF Q12HR [facility] Last Admin: 01/20/17 08:47 Dose: 10 ml
[2017-01-20] MEDS: Furosemide 40 MG TAB PO SCH (16:03)
[2017-01-20] MEDS: metFORMIN 500 MG TAB PO SCH (16:04)
[2017-01-20] MEDS ORDERED: Non-Formulary Item 1 EACH (Metformin Hcl [Glucophage] 1,000 MG) PO SCH (17:00)
[2017-01-20] MEDS: Carvedilol 6.25 MG TAB PO SCH (20:38)
[2017-01-20] MEDS: Atorvastatin Calcium 10 MG TAB PO SCH (20:39)
[2017-01-21 03:54] LABS: Anion Gap 9 mmol/L (10-20); BUN (Urea Nitrogen) 7 mg/dL (9.8-20.1); Calc. Creatinine Clearance 89 mL/min (70-130); Carbon Dioxide 27 mmol/L (23-31); Chloride 109 mmol/L (98-107); Estimated GFR-MDRD 60
[2017-01-21 04:11] LABS: #Eosinphils 0.8 thou/uL (0.0-0.7); #Lymphocytes 1.9 thou/uL (1.20-3.40); #Monocytes 1.8 thou/uL (0.11-0.59); #Neutrophils 11.5 thou/uL (1.40-6.50); %Basophils 0.1 % (0.0-1.0); %Eosinophils 5.1 % (0.0-10.0); %Lymphocytes 11.7 % (21.0-51.0); %Monocytes 11.4 % (0.0-10.0); Hematocrit 24.4 % (36.0-47.0); Mean Platelet Volume 9.1 fL (7.4-10.4); Red Blood Cell (RBC) Count 2.52 mill/uL (4.20-5.40)
[2017-01-21] MEDS: metFORMIN 500 MG TAB PO SCH ×2 (08:41→16:32)
[2017-01-21] MEDS: Carvedilol 6.25 MG TAB PO SCH ×2 (08:42→20:33)
[2017-01-21] MEDS: Clopidogrel Bisulfate 75 MG TAB PO SCH (08:42)
[2017-01-21] MEDS: Aspirin 81 mg Enteric Coated Tablet PO SCH (08:42)
[2017-01-21] MEDS: Hydrochlorothiazide 25 MG TAB PO SCH (08:42)
[2017-01-21] MEDS: Docusate 100 MG CAP PO SCH ×2 (08:42→20:34)
[2017-01-21] MEDS: Famotidine/PF 20 mg/2ml Vial SLOW IVP SCH (08:42)
[2017-01-21] MEDS: Levothyroxine Sodium 50 MCG TAB PO SCH (08:43)
[2017-01-21] MEDS ORDERED: Dapagliflozin Propanediol [Farxiga] 5 MG PO SCH ×2 (09:00)
[2017-01-21] MEDS ORDERED: Non-Formulary Item 1 EACH (Hydrochlorothiazide [Hydrochlorothiazide] 12.5 MG) PO SCH (09:00)
[2017-01-21] MEDS ORDERED: DAPAGLIFLOZIN PROPANEDIOL 5 MG PO SCH (09:00)
[2017-01-21] MEDS ORDERED: Non-Formulary Item 1 EACH (Clopidogrel Bisulfate [Clopidogrel] 75 MG) PO SCH (09:00)
[2017-01-21] MEDS ORDERED: IRBESARTAN 150 MG PO SCH (09:00)
--- NOTE | 2017-01-21 12:09 | PDOC.PN ---
- Subjective Encounter Start Date: 01/21/17 Encounter Start Time: 09:20 Pt seen for followup re: encephalopathy. Says she feels well, denies chest pain or shortness of breath. - Objective Resuscitation Status: Resuscitation Status FULL:Full Resuscitation MAR Reviewed: Yes Vital Signs & Weight: Vital Signs (12 hours) Temp Pulse Resp BP BP Pulse Ox 01/21/17 10:20 91 L 01/21/17 08:42 145/71 H 01/21/17 07:36 97.9 F 61 22 H 92 L 01/21/17 07:20 98.2 F 61 20 164/66 H 93 L 01/21/17 04:00 97.9 F 61 22 H 142/46 H 96 Weight Admit Weight 220 lb 9.6 oz Weight 226 lb 3.2 oz I&O: 01/20/17 01/21/17 01/22/17 06:59 06:59 06:59 Intake Total 2265 980 Output Total 1400 1275 Balance 865 -295 Result Diagrams: 01/21/17 03:29 01/21/17 03:29 Additional Labs: Accuchecks 01/21/17 01/21/17 01/20/17 11:20 05:22 20:38 POC Glucose 155 H 136 H 138 H 01/20/17 16:44 POC Glucose 139 H EKG Reviewed by me: Yes (Tele: NSR) Phys Exam - Physical Examination Constitutional: NAD HEENT: moist MMs, oral pharynx no lesions Neck: supple Respiratory: clear to auscultation bilateral Cardiovascular: RRR, no rub Gastrointestinal: soft Musculoskeletal: no edema Neurological: moves all 4 limbs has writhing movements of limbs, slurring of speech Psychiatric: normal affect Skin: no rash Dx/Plan (1) Acute encephalopathy Code(s): G93.40 - ENCEPHALOPATHY, UNSPECIFIED Status: Acute (2) DM2 (diabetes mellitus, type 2) Status: Chronic (3) HTN (hypertension) Code(s): I10 - ESSENTIAL (PRIMARY) HYPERTENSION Status: Chronic (4) Bipolar disorder Code(s): F31.9 - BIPOLAR DISORDER, UNSPECIFIED Status: Chronic - Plan plan discussed w/ family, PT/OT, out of bed/ambulate, DVT proph w/SCDs * . Stop haldol for risk of possible extrapyramidal symptoms. Continue accuchecks, insulin. Plan to discharge on Monday. Review of Systems - Review of Systems Constitutional: negative: Fever, Chills, Sweats, Weakness, Malaise Respiratory: negative: Cough, Dry, Shortness of Breath, Hemoptysis, SOB with Excertion, Pleuritic Pain, Sputum, Wheezing Cardiovascular: negative: Chest Pain, Palpitations, Orthopnea, Paroxysmal Noc. Dyspnea, Edema, Light Headedness - Medications/Allergies Allergies/Adverse Reactions: Allergies Allergy/AdvReac Type Severity Reaction Status Date / Time aripiprazole [From Abilify] Allergy Verified 01/12/17 17:47 codeine Allergy Verified 01/12/17 17:47 phenylpropanolamine Allergy Verified 01/12/17 17:47 quetiapine [From Seroquel] Allergy Verified 01/12/17 17:47 sertraline [From Zoloft] Allergy Verified 01/12/17 17:47 Medications: Current Medications Acetaminophen (Tylenol) 650 mg PO Q4H PRN PRN Reason: Headache/Fever or Pain Albuterol/Ipratropium (Duoneb) 3 ml NEB Q9VN-SR PRN PRN Reason: SOB &/or Wheezing Last Admin: 01/16/17 20:58 Dose: 3 ml Aspirin (Ecotrin) 81 mg PO DAILY [facility] Last Admin: 01/21/17 08:42 Dose: 81 mg Atorvastatin Calcium (Lipitor) 10 mg PO HS [facility] Last Admin: 01/20/17 20:39 Dose: 10 mg Bisacodyl (Dulcolax) 10 mg NC Q24H PRN PRN Reason: Constipation Carvedilol (Coreg) 6.25 mg PO BID [facility] Last Admin: 01/21/17 08:42 Dose: 6.25 mg Clopidogrel Bisulfate (Plavix) 75 mg PO DAILY [facility] Last Admin: 01/21/17 08:42 Dose: 75 mg Cyanocobalamin (Vitamin B-12) 1,000 mcg IM [id number] [facility] Dextrose/Water (Dextrose 50%) 25 gm SLOW IVP PRN PRN PRN Reason: Hypoglycemia Docusate Sodium (Colace) 100 mg PO BID [facility] Last Admin: 01/21/17 08:42 Dose: Not Given Ergocalciferol (Drisdol) 1.25 mg PO Q7DAYS [facility] Famotidine (Pepcid) 20 mg PO BID [facility] Furosemide (Lasix) 40 mg PO Q2DAYS [facility] Last Admin: 01/20/17 16:03 Dose: 40 mg Glucagon (Glucagon) 1 mg IM PRN PRN PRN Reason: Hypoglycemia Guaifenesin/Dextromethorphan (Robitussin Dm) 10 ml PO Q6H PRN PRN Reason: Cough Last Admin: 01/19/17 21:48 Dose: 10 ml Hydralazine HCl (Apresoline) 10 mg SLOW IVP Q4H PRN PRN Reason: SBP Greater Than 180 Hydrochlorothiazide (Hydrochlorothiazide) 12.5 mg PO DAILY [facility] Last Admin: 01/21/17 08:42 Dose: 12.5 mg Dextrose/Water (D5w) 1,000 mls @ 0 mls/hr IV .Q0M PRN; As Directed PRN Reason: Hypoglycemia Insulin Human Regular (Humulin R) 0 units SC .MILD SLIDING SCALE PRN PRN Reason: Mild Correctional Scale Insulin Human Regular (Humulin R) 0 units SC .BEDTIME SLIDING SC PRN PRN Reason: Bedtime Correctional Scale Irbesartan (Avapro) 150 mg PO DAILY [facility] Last Admin: 01/21/17 08:43 Dose: 150 mg Levothyroxine Sodium (Synthroid) 50 mcg PO DAILY [facility] Last Admin: 01/21/17 08:43 Dose: 50 mcg [place] Carbonate ([facility]obid Er) [facility] Loperamide HCl (Imodium) 2 mg PO PRN PRN PRN Reason: Diarrhea/Loose Stools Lorazepam (Ativan) 1 mg SLOW IVP Q8H PRN PRN Reason: .AGITATION Last Admin: 01/16/17 04:20 Dose: 1 mg Metformin HCl (Glucophage) 1,000 mg PO BID-[facility] Last Admin: 01/21/17 08:41 Dose: 1,000 mg Nitroglycerin (Nitrostat) 0.4 mg PO Q5MIN PRN PRN Reason: Chest Pain Ondansetron HCl (Zofran Odt) 4 mg PO Q6H PRN PRN Reason: Nausea/Vomiting Ondansetron HCl (Zofran) 4 mg IVP Q6H PRN PRN Reason: Nausea/Vomiting Dapagliflozin Propanediol [Farxiga ] 5 Mg 0 each PO QAM [facility] Senna (Senokot) 2 tab PO HSPRN PRN PRN Reason: Constipation Sodium Chloride (Flush - Normal Saline) 10 ml IVF PRN PRN PRN Reason: Saline Flush Last Admin: 01/13/17 04:51 Dose: 10 ml Sodium Chloride (Flush - Normal Saline) 10 ml IVF Q12HR [facility] Last Admin: 01/21/17 08:55 Dose: 10 ml
--- NOTE | 2017-01-21 14:50 | PRG ---
DATE OF SERVICE: 01/21/2017 SUBJECTIVE: Ms. Pulido according to the nurses, appears to be in a manic phase. She has not sle pt for several nights. OBJECTIVE: VITAL SIGNS: She is afebrile. Heart rate 60, blood pressure is 145/71, respiratory rate is 22, oxim etry is 92% and blood pressure 164/66. LUNGS: Clear. HEART: Regular rhythm. ABDOMEN: Soft. LABORATORY DATA: White count 16, hemoglobin is 8 and platelets 254. Sodium 142, potassium 3.1, chlo ride 109, bicarbonate 27, BUN 7 and creatinine 0.9. ASSESSMENT AND PLAN: She cannot tell me when she started her lithium. She says that it helped her t remendously. I cannot say anyway of managing her without her lithium. Her antibiotics have been discontinued. I have restarted her lithium at 300 mg twice a day. She tania l levels monitored very closely as an outpatient, especially if diuretics are to be used. Her renal dysfunction is resolved.
[2017-01-21] MEDS ORDERED: PARoxetine 20 MG TAB PO SCH (16:00)
[2017-01-21] MEDS: Atorvastatin Calcium 10 MG TAB PO SCH (20:33)
[2017-01-21] MEDS: Famotidine 20 MG TAB PO SCH (20:34)
[2017-01-22 05:28] LABS: Anion Gap 12 mmol/L (10-20); BUN (Urea Nitrogen) 7 mg/dL (9.8-20.1); Calc. Creatinine Clearance 92 mL/min (70-130); Calcium 9.2 mg/dL (7.8-10.44); Carbon Dioxide 24 mmol/L (23-31); Chloride 109 mmol/L (98-107); Estimated GFR-MDRD 62
--- NOTE | 2017-01-22 09:36 | PDOC.PN ---
- Subjective Encounter Start Date: 01/22/17 Encounter Start Time: 09:34 Ms. Pulido was seen today in follow-up of [place] toxicity and altered mental status. She is awake and alert, and does not have any complaints. she would like to go home. - Objective Resuscitation Status: Resuscitation Status FULL:Full Resuscitation MAR Reviewed: Yes Vital Signs & Weight: Vital Signs (12 hours) Temp Pulse Resp BP BP Pulse Ox 01/22/17 08:00 98.3 F 77 18 156/51 H 98 01/22/17 04:00 97.8 F 70 16 138/68 97 01/22/17 00:00 98 F 66 20 143/67 H 95 Weight Admit Weight 220 lb 9.6 oz Weight 225 lb 12.8 oz I&O: 01/21/17 01/22/17 01/23/17 06:59 06:59 06:59 Intake Total 980 800 Output Total 1275 1150 Balance -295 -350 Result Diagrams: 01/21/17 03:29 01/22/17 04:52 Additional Labs: Accuchecks 01/21/17 01/21/17 01/21/17 20:42 17:02 11:20 POC Glucose 127 H 145 H 155 H Phys Exam - Physical Examination HEENT: PERRLA Respiratory: no wheezing, no rales, no rhonchi, clear to auscultation bilateral Cardiovascular: RRR, no significant murmur, no rub Gastrointestinal: soft, non-tender, positive bowel sounds Musculoskeletal: no edema + erymosis, and erythema on left hip and thigh Dx/Plan (1) FIDEL (acute kidney injury) Code(s): N17.9 - ACUTE KIDNEY FAILURE, UNSPECIFIED Status: Acute Comment: Resolving, avoid nephrotoxic meds and contrast media (2) Acute encephalopathy Code(s): G93.40 - ENCEPHALOPATHY, UNSPECIFIED Status: Acute (3) [place] toxicity Code(s): T56.891A - TOXIC EFFECT OF OTH METALS, ACCIDENTAL (UNINTENTIONAL), INIT Status: Acute Comment: Stable, monitor trend, should improve with improved renal function (4) Bipolar disorder Code(s): F31.9 - BIPOLAR DISORDER, UNSPECIFIED Status: Chronic (5) DM2 (diabetes mellitus, type 2) Status: Chronic (6) HTN (hypertension) Code(s): I10 - ESSENTIAL (PRIMARY) HYPERTENSION Status: Chronic - Plan * Ms. Pulido was admitted with toxic metabolic encephalopathy from [place] toxicity. This has resolved, and her renal function has improved * She has been re-started on [place], and will need to monitor [place] levels closely as outpatient * HTN- blood pressure is stable * DM- blood glucose is stable * Hypothyroid- she is clinically euthyroid * Await transfer to [place] tomorrow
[2017-01-22] MEDS: PARoxetine 20 MG TAB PO SCH (09:40)
[2017-01-22] MEDS: Hydrochlorothiazide 25 MG TAB PO SCH (09:40)
[2017-01-22] MEDS: Levothyroxine Sodium 50 MCG TAB PO SCH (09:40)
[2017-01-22] MEDS: Aspirin 81 mg Enteric Coated Tablet PO SCH (09:41)
[2017-01-22] MEDS: metFORMIN 500 MG TAB PO SCH ×2 (09:41→17:22)
[2017-01-22] MEDS: Famotidine 20 MG TAB PO SCH ×2 (09:41→20:38)
[2017-01-22] MEDS: Carvedilol 6.25 MG TAB PO SCH ×2 (09:41→20:38)
[2017-01-22] MEDS: Docusate 100 MG CAP PO SCH (09:42)
[2017-01-22] MEDS: Clopidogrel Bisulfate 75 MG TAB PO SCH (09:42)
[2017-01-22] MEDS ORDERED: Potassium Chloride 20 MEQ TAB PO SCH ×2 (10:10→10:15)
[2017-01-22] MEDS: Furosemide 40 MG TAB PO SCH (14:14)
--- NOTE | 2017-01-22 17:45 | PRG ---
DATE OF SERVICE: 01/22/2017 SUBJECTIVE: Ms. Pulido is still medically stable. She has pressured speech. She has no complai nts. She was started on lithium yesterday. Her family has no complaints. Her daughter was in the room when I made rounds on her today and told me she thought that she was starting to go to the other end of her bipolar illness and was glad that we had restarted lithium yesterday. I reminded her daughter that the lithium levels will have to be monitored very closely as an outpatie nt and also her hydration status will need to be monitored since these are intertwined. Daughter see ms to have a pretty good understanding of this and it sounds like talking to her that she had an unde rstanding of this before this event. She told me she had asked for a lithium level and was told it was not time yet. OBJECTIVE: LUNGS: Clear today. HEART: Regular rhythm. ABDOMEN: Soft. EXTREMITIES: Without asymmetry. PLAN: Hopefully, discharge planning is in progress. I think from a medical standpoint, she can go b the [facility] to [place] in the morning as soon as it is feasible for the family and the transfer.
[2017-01-22] MEDS: Atorvastatin Calcium 10 MG TAB PO SCH (20:38)
[2017-01-22] MEDS: Lorazepam 2 MG/ML VIAL SLOW IVP PRN (22:34)
[2017-01-23 05:08] LABS: Anion Gap 10 mmol/L (10-20); BUN (Urea Nitrogen) 8 mg/dL (9.8-20.1); Calc. Creatinine Clearance 97 mL/min (70-130); Calcium 9.1 mg/dL (7.8-10.44); Carbon Dioxide 31 mmol/L (23-31); Chloride 105 mmol/L (98-107); Estimated GFR-MDRD 66
--- NOTE | 2017-01-23 07:59 | PDOC.PN ---
- Subjective Encounter Start Date: 01/23/17 Encounter Start Time: 07:57 Ms. Pulido was seen today in follow-up of [place] toxicity. She is sitting in a chair today, and she does not have any complaints. She says she has to get back to a normal life for her and family. - Objective Resuscitation Status: Resuscitation Status FULL:Full Resuscitation MAR Reviewed: Yes Vital Signs & Weight: Vital Signs (12 hours) Temp Pulse Resp BP BP BP Pulse Ox 01/23/17 07:37 97.8 F 67 16 95 01/23/17 07:05 98.0 F 73 16 148/56 H 95 01/23/17 04:00 97.8 F 67 16 107/46 L 96 01/23/17 00:00 97.5 F L 75 18 132/60 96 01/22/17 20:38 156/51 H 01/22/17 20:00 98.0 F 72 18 152/74 H 98 Weight Admit Weight 220 lb 9.6 oz Weight 225 lb 12.8 oz I&O: 01/22/17 01/23/17 01/24/17 06:59 06:59 06:59 Intake Total 800 1950 Output Total 1150 3700 Balance -350 -1750 Result Diagrams: 01/21/17 03:29 01/23/17 04:28 Additional Labs: Accuchecks 01/23/17 01/22/17 01/22/17 06:03 20:38 16:30 POC Glucose 126 H 131 H 115 H 01/22/17 01/22/17 11:08 06:02 POC Glucose 139 H 121 H Phys Exam - Physical Examination HEENT: PERRLA Respiratory: no wheezing, no rales, no rhonchi, clear to auscultation bilateral Cardiovascular: RRR, no significant murmur, no rub Gastrointestinal: soft, non-tender, positive bowel sounds Musculoskeletal: no edema + edema, and echymosis on the left hip and thigh Dx/Plan (1) [place] toxicity Code(s): T56.891A - TOXIC EFFECT OF OTH METALS, ACCIDENTAL (UNINTENTIONAL), INIT Status: Acute Comment: Stable, monitor trend, should improve with improved renal function (2) FIDEL (acute kidney injury) Code(s): N17.9 - ACUTE KIDNEY FAILURE, UNSPECIFIED Status: Acute Comment: Resolving, avoid nephrotoxic meds and contrast media (3) Acute encephalopathy Code(s): G93.40 - ENCEPHALOPATHY, UNSPECIFIED Status: Acute (4) Bipolar disorder Code(s): F31.9 - BIPOLAR DISORDER, UNSPECIFIED Status: Chronic (5) DM2 (diabetes mellitus, type 2) Status: Chronic (6) HTN (hypertension) Code(s): I10 - ESSENTIAL (PRIMARY) HYPERTENSION Status: Chronic - Plan * [place] Toxicity- this has resolved * Acute renal failure- also resolved * HTN- blood pressure is stable. * Hypokalemia- this has been persistent- will discontinue HCTZ, and replace potassium * Will also check magnesium level * DM- blood glucose is stable * Awaiting transfer to [place]
[2017-01-23] MEDS: Levothyroxine Sodium 50 MCG TAB PO SCH (08:34)
[2017-01-23] MEDS: Carvedilol 6.25 MG TAB PO SCH (08:34)
[2017-01-23] MEDS: PARoxetine 20 MG TAB PO SCH (08:34)
[2017-01-23] MEDS: Clopidogrel Bisulfate 75 MG TAB PO SCH (08:35)
[2017-01-23] MEDS: Famotidine 20 MG TAB PO SCH (08:35)
[2017-01-23] MEDS: Aspirin 81 mg Enteric Coated Tablet PO SCH (08:35)
[2017-01-23] MEDS: metFORMIN 500 MG TAB PO SCH (08:35)
--- NOTE | 2017-01-23 08:49 | PRG ---
DATE OF SERVICE: 01/23/2017 SUBJECTIVE: The patient is more awake and alert. She was apparently restarted on lithium over the w eekend. She is still very, very weak. PHYSICAL EXAMINATION: VITAL SIGNS: On exam, her temperature is 97.8, pulse 67, respirations 16, O2 sat 95%, blood pressure 140/56. HEENT: Unremarkable. NECK: No JVD. CHEST: Clear. CARDIAC: S1 and S2 regular. ABDOMEN: Soft. EXTREMITIES: No edema. ASSESSMENT: 1. Status post lithium overdose. 2. Improved encephalopathy. PLAN: She seems stable for discharge to next level of care. No further pulmonary issues will be nat ilable as needed for problems.
[2017-01-23 11:34] VITALS: BP 127/54; TEMP 97.9
[2017-01-23] MEDS ORDERED: Magnesium 2 GM/NS 0.9% 50 ML 2 GM in Premix Bag 1 BAG IVPB SCH (12:45)
[2017-01-23] MEDS ORDERED: Magnesium 2 GM/NS 0.9% 100 ML 2 GM in Premix Bag 1 BAG IVPB SCH (13:00)
--- NOTE | 2017-01-23 14:01 | DIS ---
DATE OF ADMISSION: 01/12/2017 DATE OF DISCHARGE: 01/23/2017 PRIMARY CARE PHYSICIAN: Giovanni Alvarado M.D. DISCHARGE DISPOSITION: Home. PRIMARY DISCHARGE DIAGNOSES: 1. [place] toxicity. 2. Toxic metabolic encephalopathy secondary to lithium toxicity. 3. Acute renal failure, resolved. 4. Diabetes mellitus, type 2. 5. Hyperlipidemia. 6. Hypertension. 7. Hypothyroidism. 8. Bipolar disorder. DISCHARGE MEDICATIONS: The patient was taken off of hydrochlorothiazide due to hypokalemia. She is to continue paroxetine 40 mg daily, metformin 1000 mg twice a day, lithium carbonate 300 mg twice deborah ly, Synthroid 50 mcg daily, Avapro 150 mg daily, Lasix 40 mg every other day, ergocalciferol 5000 uni ts every 7 days, diazepam 5 mg t.i.d., Plavix 75 mg daily, carvedilol 6.25 mg twice a day, and Lipito r 10 mg at bedtime. PROCEDURES DONE DURING ADMISSION: The patient had a CT scan of the abdomen and pelvis in which there was some distention of the urinary bladder noted. There was no evidence of appendicitis. There wer e some vascular calcifications. The patient also had a CT scan of the brain in which they noted acut e intracranial abnormalities. There were some mild chronic small vessel changes. HOSPITAL COURSE: Ms. Pulido is a pleasant 71-year-old female who was admitted to the [facility] to altered mental status. She was found to have lithium toxicity, this was after her psychiatric m edications have recently changed. She was found to have a lithium level in the toxic range of 2.9. Her creatinine was also 3.0 on admission. The lithium was held and Nephrology was consulted. She un derwent urgent dialysis due to the lithium toxicity and altered mental status which was associated wi th lithium toxicity once her renal function normalized. At the time of discharge, her creatinine is back down to 0.85. She was restarted back on lithium after discussion with her family and this was d one by the Pulmonary and behavioral health specialist. She would have to have close monitoring of her li thium level in the outpatient setting. Hydrochlorothiazide was also discontinued as she had a persis tent hypokalemia due to the hydrochlorothiazide. Once the patient was stabilized, she was able to be discharged to the [facility] in [place].
[2017-01-27] MEDS ORDERED: ERGOCALCIFEROL 5000 UNIT PO SCH (09:00)
[2017-01-27] MEDS ORDERED: Ergocalciferol 1.25 MG(50,000 UNITS) CAP PO SCH (09:00)
== END 2017-01-23 13:45 | DRG 92 ==
LOC: ERS 11:56 → IMCU/EMU 16:23
PROVIDERS: ADMIT Internal Medicine; ATTEND Internal Medicine
PROC: 5A1D70Z Performance of Urinary Filtration, Intermittent, Less than 6 Hours Per Day (ICD-10-PCS; principal; 2017-01-15)
PROC: 06HM33Z Insertion of Infusion Device into Right Femoral Vein, Percutaneous Approach (ICD-10-PCS; 2017-01-15)
PROC: 30233N1 Transfusion of Nonautologous Red Blood Cells into Peripheral Vein, Percutaneous Approach (ICD-10-PCS; 2017-01-18)
DX: G92 Toxic encephalopathy (principal); N17.9 Acute kidney failure, unspecified; L89.321 Pressure ulcer of left buttock, stage 1; E87.0 Hyperosmolality and hypernatremia; D64.9 Anemia, unspecified; E87.8 Other disorders of electrolyte and fluid balance, not elsewhere classified; E11.22 Type 2 diabetes mellitus with diabetic chronic kidney disease; N18.3 Chronic kidney disease, stage 3 (moderate); Z68.41 Body mass index [BMI] 40.0-44.9, adult; E86.0 Dehydration; E78.5 Hyperlipidemia, unspecified; E03.9 Hypothyroidism, unspecified; F31.9 Bipolar disorder, unspecified; Z95.0 Presence of cardiac pacemaker; F32.9 Major depressive disorder, single episode, unspecified; T43.225A Adverse effect of selective serotonin reuptake inhibitors, initial encounter; T43.4X5A Adverse effect of butyrophenone and thiothixene neuroleptics, initial encounter; T42.4X5A Adverse effect of benzodiazepines, initial encounter; N30.90 Cystitis, unspecified without hematuria; E87.6 Hypokalemia; I12.9 Hypertensive chronic kidney disease with stage 1 through stage 4 chronic kidney disease, or unspecified chronic kidney disease; E66.01 Morbid (severe) obesity due to excess calories
CPT/HCPCS: 36415; 36416; 36430; 70450; 71010; 74176; 80048; 80053; 80061; 80178; 80202; 81001; 82140; 82533; 82550; 82553; 82607; 82746; 82805; 83605; 83630; 83690; 83735; 84100; 84436; 84439; 84443; 84481; 84484; 85007; 85025; 85027; 85610; 85730; 86140; 86850; 86900; 86901; 87015; 87040; 87045; 87046; 87086; 87324; 87340; 87449; 87899; 90935; 93005; 93306; 94640; 94760; 95816; 95819; 96361; 96365; 96372; 96375; 96376; A4216; G0257; G8978-GP-CN; G8979-GP-CL; G8987-GO-CN; G8988-GO-CL; G8996-GN-CN; G8997-GN-CK; J0696; J1630; J2001; J2060; J2185; J3370; J3420; J3475; J3480; J7042; J7050; J7620; P9016

== ENCOUNTER 2019-01-25 05:59 | Day surgery (SDC) | payer MEDICARE ==
[2019-01-24 08:30] VITALS: BMI 38.4
[2019-01-25] MEDS ORDERED: Gentamicin 80 MG/2 ML VIAL ONE (06:37)
[2019-01-25] MEDS ORDERED: Lidocaine 1% (PF) 30 ML VIAL ONE (06:37)
[2019-01-25] MEDS ORDERED: CEFAZOLIN 1 GM VIAL ONE (06:37)
[2019-01-25 06:59] LABS: #Basophils 0.1 thou/uL (0.0-0.2); #Eosinphils 0.5 thou/uL (0.0-0.7); #Lymphocytes 1.9 thou/uL (1.20-3.40); #Neutrophils 9.8 thou/uL (1.40-6.50); %Basophils 0.4 % (0.0-1.0); %Eosinophils 3.4 % (0.0-10.0); %Lymphocytes 14.1 % (21.0-51.0); %Monocytes 7.7 % (0.0-10.0); %Neutrophils 74.3 % (42.0-75.0); Hemoglobin 12.9 g/dL (12.0-16.0); Mean Corpuscular HGB CONC 31.1 g/dL (32.0-36.0); Mean Corpuscular Hemoglobin 27.8 pg (27.0-31.0); Mean Corpuscular Volume 89.4 fL (78.0-98.0); Mean Platelet Volume 8.8 fL (7.4-10.4); Platelet Count 312 thou/uL (130-400); RBC Distribution Width 14.6 % (11.5-14.5); Red Blood Cell (RBC) Count 4.62 mill/uL (4.20-5.40); White Blood Cell (WBC) Count 13.2 thou/uL (4.8-10.8)
[2019-01-25 07:03] LABS: PTT 27.7 SEC (22.9-36.1); Prothrombin Time 13.6 SEC (12.0-14.7)
[2019-01-25 07:04] LABS: Anion Gap 11 mmol/L (10-20); BUN (Urea Nitrogen) 17 mg/dL (9.8-20.1); Calc. Creatinine Clearance 59 mL/min (70-130); Calcium 10.1 mg/dL (7.8-10.44); Carbon Dioxide 25 mmol/L (23-31); Chloride 107 mmol/L (98-107); Estimated GFR-MDRD 42; Glucose 107 mg/dL (83-110); Potassium 4.1 mmol/L (3.5-5.1); Sodium 139 mmol/L (136-145)
[2019-01-25] MEDS ORDERED: Ketamine 50 MG/ML (10ML VIAL) ONE (07:19)
[2019-01-25] MEDS ORDERED: Fentanyl 100 MCG/2 ML VIAL ONE (07:19)
[2019-01-25] MEDS ORDERED: Midazolam HCl 2 mg/2 ml Vial ONE (07:19)
[2019-01-25] MEDS ORDERED: PROPOFOL 40 ML ONE (07:20)
[2019-01-25] MEDS ORDERED: Lidocaine 2% PF 5 ML VIAL ONE (08:11)
--- NOTE | 2019-01-25 10:16 | RAD ---
EXAM: Single view of the chest HISTORY: Pacemaker placement COMPARISON: 01/14/2017 FINDINGS: Single view of the chest shows a normal sized cardiomediastinal silhouette. A left subclav shobha pacemaker is seen with its leads in the right burrows, right ventricle, and coronary sinus. Other retained old pacer wires are seen. There is no evidence of consolidation, mass, or pleural effusion. The bones are unremarkable. IMPRESSION: Status post pacemaker placement without evidence of complication.
[2019-01-25] MEDS ORDERED: Iopamidol 370 76% 50 ML VIAL FS ONE (11:36)
--- NOTE | 2019-01-25 12:49 | OP ---
DATE OF PROCEDURE: 01/25/2019 PROCEDURE PERFORMED: Upgrade of dual-chamber permanent pacemaker to PAYROLL AND BENEFITS COORDINATOR ICD. PREOPERATIVE DIAGNOSES: Left ventricular dysfunction, 100% ventricular pacing, low ejection fraction less than 35%, and congestive heart failure. PROCEDURE IN DETAIL: The patient came to the EP lab in the postabsorptive state. Informed consent was obtained. A time-out was called. The patient was sedated by a member of the anesthesia staff. Once the patient was adequately sedated, the left chest area was prepped and draped in the usual sterile fashion. A 10 mL venogram demonstrated patency of left subclavian vein system. A 4 cm incision was made over the existing scar. The incision was carried down to the existing pacemaker pocket using combination of electrocautery and blunt dissection. The old pacemaker was removed and inspected. The leads appeared to be intact. Access was obtained x2 into the subclavian vein using a micropuncture access needle. Through the first access sheath, a Medtronic [id number], lead 55 cm, serial #[id number] was implanted into the right ventricular septum. Once adequate sensing and thresholds were obtained, the lead was secured by extension of the helix. The lead was then secured to the prepectoral fascia. Following this, a Medtronic [id number], 78 cm quad lead was placed into the coronary sinus once access to the coronary sinus was obtained. A lateral branch, which was fairly high was selected. Again, placement of the lead in that area was tested to ensure that there was no diaphragm capture adequate sensing and thresholds. The serial number on that lead is [id number]. The existing right ventricular lead was then capped. The old pacemaker was removed, and a new ICD PAYROLL AND BENEFITS COORDINATOR system was placed. This is a Viva quad XT PAYROLL AND BENEFITS COORDINATOR-D, model #[id number], serial #[id number]. Final numbers were as follows; atrial P-wave was 3.4, impedance 399, threshold 0.75 V at 0.4 milliseconds. RV is paced. The impedance is 456, threshold is 0.5 V at 0.4 milliseconds. LV is paced, impedance is 456, threshold 0.5 V at 0.4 milliseconds. High voltage impedance is 73 ohms. The device is set at 60 to 120 DDD with VT zone set at 171 beats per minute. The pocket was copiously irrigated with antibiotic solution. was used, and the ICD and the leads were placed in the pocket of note. The existing pocket was in the in the fat. A new pocket was made above the prepectoral fascia and underneath the existing pocket once the leads had been dissected out of the pocket. The pocket was then closed with 2-0, 3-0, and 4-0 Vicryl followed by Dermabond for the skin. The patient tolerated the procedure well, was discharged to the EP lab in stable condition. ESTIMATED BLOOD LOSS: Less than 30 mL. COMPLICATIONS: None. CONCLUSIONS: 1. Successful implantation of left ventricular lead. 2. Successful implantation of ICD shock lead. 3. Successful implantation of ICD generator PAYROLL AND BENEFITS COORDINATOR-D. 4. Successful removal of old pacemaker lead. 5. Successful capping of right ventricular existing pacemaker lead. RECOMMENDATIONS: The patient will be at bed rest. She will receive antibiotics. She will be discharged later today, pending a chest x-ray. Job ID: [id number]
--- NOTE | 2019-01-25 17:58 | EKG ---
Test Reason : PREOP Blood Pressure : / mmHG Vent. Rate : 094 BPM Atrial Rate : 094 BPM P-R Int : 000 ms QRS Dur : 174 ms QT Int : 476 ms P-R-T Axes : 049 -64 082 degrees QTc Int : 595 ms Electronic ventricular pacemaker When compared with ECG of 12-JAN-2017 12:24, Vent. rate has increased BY 27 BPM Confirmed by Ashley HERNANDEZ ([id number]) on 01/25/2019 5:57:46 PM Referred By: JOSÉ MIGUEL Confirmed By:Ashley HERNANDEZ
== END 2019-01-25 13:05 | disposition home or self-care (01) ==
LOC: CCL 05:59
PROVIDERS: ATTEND Specialist
PROC: 0JH609Z Insertion of Cardiac Resynchronization Defibrillator Pulse Generator into Chest Subcutaneous Tissue and Fascia, Open Approach (ICD-10-PCS; principal; 2019-01-25)
PROC: 02HK3KZ Insertion of Defibrillator Lead into Right Ventricle, Percutaneous Approach (ICD-10-PCS; 2019-01-25)
PROC: 0JPT0PZ Removal of Cardiac Rhythm Related Device from Trunk Subcutaneous Tissue and Fascia, Open Approach (ICD-10-PCS; 2019-01-25)
DX: I11.0 Hypertensive heart disease with heart failure (principal); I50.22 Chronic systolic (congestive) heart failure; I25.5 Ischemic cardiomyopathy; I44.2 Atrioventricular block, complete; E03.9 Hypothyroidism, unspecified; E11.9 Type 2 diabetes mellitus without complications; E66.01 Morbid (severe) obesity due to excess calories; Z87.891 Personal history of nicotine dependence; Z68.38 Body mass index [BMI] 38.0-38.9, adult; Z79.02 Long term (current) use of antithrombotics/antiplatelets; Z79.82 Long term (current) use of aspirin; Z79.84 Long term (current) use of oral hypoglycemic drugs; Z79.899 Other long term (current) drug therapy; Z88.5 Allergy status to narcotic agent; Z88.8 Allergy status to other drugs, medicaments and biological substances
CPT/HCPCS: 33225; 33249; 36005; 71045; 75820; 80048; 85025; 85610; 85730; 93005; 93010; C1769; C1777; C1882; C1900; J0690; J1580; J2001; J2250; J2704; J3010; Q9967